=== PATIENT | female | born 1985 | race Caucasian/White ===

== ENCOUNTER 2022-03-30 12:07 | Inpatient (IN) | payer MEDICAID, SELFPAY ==
[2022-03-30 12:08] VITALS: BP 121/77; PULSE 87; RESP 16; TEMP 36.6; O2SAT 97; BMI 26.5
--- NOTE | 2022-03-30 12:31 | EDS_ITS ---
HPI <DWAIN Suero - Last Filed: 03/30/22 15:58> History of Present Illness Chief Complaint: Substance Abuse Narrative Narrative: 37-year-old female presents requesting detox from heroin. She uses IV heroin approximately 2-3 times a day for the last 3 years with last use this morning. A few months ago she tried to detox at home without access. She has never come to the hospital or been admitted for this before. She denies using any other drugs or alcohol. Smokes 1 PPD. She has history of anxiety/depression and was previously on Zoloft and Lamictal but has not taken these for several months. She is not established with a doctor. No SI/HI. PFSH <DWAIN Suero - Last Filed: 03/30/22 15:58> PFSH Medical History Bipolar 1 disorder Home Medications duloxetine 60 mg capsule,delayed release (Cymbalta) 60 mg PO DAILY 03/30/22 [History Last Taken Unknown] lamotrigine 100 mg tablet (Lamictal) 100 mg PO BID 03/30/22 [History Last Taken Unknown] Allergy/AdvReac Type Severity Reaction Status Date / Time ketorolac [From Toradol] Allergy Hives Verified 03/30/22 12:10 latex Allergy Hives Verified 03/30/22 12:10 Surgical History History of cholecystectomy Social History Smoking Status: Current every day smoker tobacco type: cigarettes ROS <DWAIN Suero - Last Filed: 03/30/22 15:58> ROS ED ROS Narrative Constitutional: Negative for fever, chills, malaise. Eyes: Negative for visual change. ENT: Negative for sore throat, ear pain, rhinorrhea. CVS: Negative for palpitations, chest pain, syncope. Respiratory: Negative for shortness of breath, cough, orthopnea. GI: Negative for abdominal pain, nausea, vomiting, diarrhea, constipation, melena, hematochezia. : Negative for dysuria, hematuria or frequency. Neuro: Negative for headache, motor/sensory dysfunction. Skin: Negative for rash, abscess, or wound. Musc: Negative for joint pain, swelling, trauma. Heme: Negative for easy bruising, bleeding, lymphadenopathy. EXAM <DWAIN Suero - Last Filed: 03/30/22 15:58> Physical Exam Narrative Exam Narrative: CONST: Patient sitting in no acute distress. EYES: Normal inspection. NECK: Normal inspection. RESP: No respiratory distress, CTAB. CVS: Regular rate and rhythm, no murmur, no gallop. SKIN: Color normal, no rash, warm, dry, intact. EXTREMITIES: Normal appearance, no pedal edema. NEURO: Oriented x4. PSYCH: Normal affect. Const Vital Signs: 03/30/22 12:08 Temperature 98 F Temperature Source Temporal Pulse Rate 87 Respiratory Rate 16 Blood Pressure 121/77 H Blood Pressure Mean 91 Pulse Ox 97 Oxygen Delivery Method Room Air <Dr. Debra Thompson DO - Last Filed: 03/30/22 14:07> Physical Exam Const Vital Signs: 03/30/22 12:08 Temperature 98 F Temperature Source Temporal Pulse Rate 87 Respiratory Rate 16 Blood Pressure 121/77 H Blood Pressure Mean 91 Pulse Ox 97 Oxygen Delivery Method Room Air MDM <DWAIN Suero - Last Filed: 03/30/22 15:58> MDM MDM Narrative Medical decision making narrative: Patient presents to detox from heroin. Last used this morning. She appears well and nontoxic, vital signs within normal limits. Medical exam unremarkable. Screening labs obtained and are unremarkable. Urine tox pending. Alcohol negative. test negative. She has no symptoms of withdrawal yet and was only treated with a nicotine patch in the ED. Patient is medically cleared for detox and case was discussed with the hospitalist for admission. Lab Data Attestation: I reviewed the patient's lab results. Labs: Laboratory Results - last 24 hr 03/30/22 03/30/22 03/30/22 12:25 12:38 12:38 WBC 11.5 H RBC 4.72 Hgb 14.1 Hct 43.1 MCV 91.3 MCH 29.9 MCHC 32.7 RDW Std Deviation 41.1 RDW Coeff of Karla 12.4 Plt Count 249 MPV 11.1 Immature Gran % (Auto) 0.300 Neut % (Auto) 47.7 Lymph % (Auto) 41.6 H [place] % (Auto) 7.6 Eos % (Auto) 2.3 Baso % (Auto) 0.5 Absolute Neuts (auto) 5.5 Absolute Lymphs (auto) 4.79 H Nucleated RBC % 0 Differential Comment SCANNED Reactive Lymphocytes 1+ Sodium 138 Potassium 3.7 Chloride 107 Carbon Dioxide 27.0 Anion Gap 4 L BUN 14 Creatinine 0.73 Estim Creat Clear Calc 83.45 Est GFR (MDRD) Af Amer 115 Est GFR (MDRD) Non-Af 95 BUN/Creatinine Ratio 19.1 Glucose 115 H Calcium 8.8 Total Bilirubin Direct Bilirubin GGT AST ALT Alkaline Phosphatase Total Protein Albumin Globulin Serum , Qual Urine Opiates Screen NEGATIVE Urine Methadone Screen NEGATIVE Ur Barbiturates Screen NEGATIVE Ur Phencyclidine Scrn NEGATIVE Ur Amphetamines Screen NEGATIVE MDMA (Ecstasy) Screen POSITIVE H U Benzodiazepines Scrn NEGATIVE Urine Cocaine Screen POSITIVE H U Cannabinoids Screen NEGATIVE Ur Drug Screen Comment Ethyl Alcohol 03/30/22 03/30/22 03/30/22 12:38 12:38 12:38 WBC RBC Hgb Hct MCV MCH MCHC RDW Std Deviation RDW Coeff of Karla Plt Count MPV Immature Gran % (Auto) Neut % (Auto) Lymph % (Auto) [place] % (Auto) Eos % (Auto) Baso % (Auto) Absolute Neuts (auto) Absolute Lymphs (auto) Nucleated RBC % Differential Comment Reactive Lymphocytes Sodium Potassium Chloride Carbon Dioxide Anion Gap BUN Creatinine Estim Creat Clear Calc Est GFR (MDRD) Af Amer Est GFR (MDRD) Non-Af BUN/Creatinine Ratio Glucose Calcium Total Bilirubin 0.50 Direct Bilirubin 0.15 GGT AST 23 ALT 31 Alkaline Phosphatase 72 Total Protein 8.2 Albumin 3.5 Globulin 4.7 H Serum , Qual NEGATIVE Urine Opiates Screen Urine Methadone Screen Ur Barbiturates Screen Ur Phencyclidine Scrn Ur Amphetamines Screen MDMA (Ecstasy) Screen U Benzodiazepines Scrn Urine Cocaine Screen U Cannabinoids Screen Ur Drug Screen Comment Ethyl Alcohol < 3.0 03/30/22 12:38 WBC RBC Hgb Hct MCV MCH MCHC RDW Std Deviation RDW Coeff of Karla Plt Count MPV Immature Gran % (Auto) Neut % (Auto) Lymph % (Auto) [place] % (Auto) Eos % (Auto) Baso % (Auto) Absolute Neuts (auto) Absolute Lymphs (auto) Nucleated RBC % Differential Comment Reactive Lymphocytes Sodium Potassium Chloride Carbon Dioxide Anion Gap BUN Creatinine Estim Creat Clear Calc Est GFR (MDRD) Af Amer Est GFR (MDRD) Non-Af BUN/Creatinine Ratio Glucose Calcium Total Bilirubin Direct Bilirubin GGT 21 AST ALT Alkaline Phosphatase Total Protein Albumin Globulin Serum , Qual Urine Opiates Screen Urine Methadone Screen Ur Barbiturates Screen Ur Phencyclidine Scrn Ur Amphetamines Screen MDMA (Ecstasy) Screen U Benzodiazepines Scrn Urine Cocaine Screen U Cannabinoids Screen Ur Drug Screen Comment Ethyl Alcohol <Dr. Debra Thompson, DO - Last Filed: 03/30/22 14:07> [facility] Lab Data Labs: Laboratory Results - last 24 hr 03/30/22 03/30/22 03/30/22 12:25 12:38 12:38 WBC 11.5 H RBC 4.72 Hgb 14.1 Hct 43.1 MCV 91.3 MCH 29.9 MCHC 32.7 RDW Std Deviation 41.1 RDW Coeff of Karla 12.4 Plt Count 249 MPV 11.1 Immature Gran % (Auto) 0.300 Neut % (Auto) 47.7 Lymph % (Auto) 41.6 H [place] % (Auto) 7.6 Eos % (Auto) 2.3 Baso % (Auto) 0.5 Absolute Neuts (auto) 5.5 Absolute Lymphs (auto) 4.79 H Nucleated RBC % 0 Differential Comment SCANNED Reactive Lymphocytes 1+ Sodium 138 Potassium 3.7 Chloride 107 Carbon Dioxide 27.0 Anion Gap 4 L BUN 14 Creatinine 0.73 Estim Creat Clear Calc 83.45 Est GFR (MDRD) Af Amer 115 Est GFR (MDRD) Non-Af 95 BUN/Creatinine Ratio 19.1 Glucose 115 H Calcium 8.8 Total Bilirubin Direct Bilirubin GGT AST ALT Alkaline Phosphatase Total Protein Albumin Globulin Serum , Qual Urine Opiates Screen NEGATIVE Urine Methadone Screen NEGATIVE Ur Barbiturates Screen NEGATIVE Ur Phencyclidine Scrn NEGATIVE Ur Amphetamines Screen NEGATIVE MDMA (Ecstasy) Screen POSITIVE H U Benzodiazepines Scrn NEGATIVE Urine Cocaine Screen POSITIVE H U Cannabinoids Screen NEGATIVE Ur Drug Screen Comment Ethyl Alcohol 03/30/22 03/30/22 03/30/22 12:38 12:38 12:38 WBC RBC Hgb Hct MCV MCH MCHC RDW Std Deviation RDW Coeff of Karla Plt Count MPV Immature Gran % (Auto) Neut % (Auto) Lymph % (Auto) [place] % (Auto) Eos % (Auto) Baso % (Auto) Absolute Neuts (auto) Absolute Lymphs (auto) Nucleated RBC % Differential Comment Reactive Lymphocytes Sodium Potassium Chloride Carbon Dioxide Anion Gap BUN Creatinine Estim Creat Clear Calc Est GFR (MDRD) Af Amer Est GFR (MDRD) Non-Af BUN/Creatinine Ratio Glucose Calcium Total Bilirubin 0.50 Direct Bilirubin 0.15 GGT AST 23 ALT 31 Alkaline Phosphatase 72 Total Protein 8.2 Albumin 3.5 Globulin 4.7 H Serum , Qual NEGATIVE Urine Opiates Screen Urine Methadone Screen Ur Barbiturates Screen Ur Phencyclidine Scrn Ur Amphetamines Screen MDMA (Ecstasy) Screen U Benzodiazepines Scrn Urine Cocaine Screen U Cannabinoids Screen Ur Drug Screen Comment Ethyl Alcohol < 3.0 03/30/22 12:38 WBC RBC Hgb Hct MCV MCH MCHC RDW Std Deviation RDW Coeff of Karla Plt Count MPV Immature Gran % (Auto) Neut % (Auto) Lymph % (Auto) [place] % (Auto) Eos % (Auto) Baso % (Auto) Absolute Neuts (auto) Absolute Lymphs (auto) Nucleated RBC % Differential Comment Reactive Lymphocytes Sodium Potassium Chloride Carbon Dioxide Anion Gap BUN Creatinine Estim Creat Clear Calc Est GFR (MDRD) Af Amer Est GFR (MDRD) Non-Af BUN/Creatinine Ratio Glucose Calcium Total Bilirubin Direct Bilirubin GGT 21 AST ALT Alkaline Phosphatase Total Protein Albumin Globulin Serum , Qual Urine Opiates Screen Urine Methadone Screen Ur Barbiturates Screen Ur Phencyclidine Scrn Ur Amphetamines Screen MDMA (Ecstasy) Screen U Benzodiazepines Scrn Urine Cocaine Screen U Cannabinoids Screen Ur Drug Screen Comment Ethyl Alcohol Treatment and Re-Evaluation Narrative: I have personally performed a face to face assessment of the patient and have reviewed the MARIBETH Note. I performed a substantive portion of the visit including all aspects of the following. My fu findings include: History is patient is a 37-year-old female presenting for heroin dependency and detox. Patient states she has been using regularly. Last use very early this morning. Injects. Denies any other complaints at this time. Does use tobacco regularly. Denies any other drug use or alcohol use. Exam is Normocephalic atraumatic. Moist mucosal membranes. Neck is supple. No JVD. Heart regular rate and rhythm. Lungs clear to auscultation bilaterally. Abdomen soft and nontender. No peripheral edema appreciated. No rash or abscess appreciated. No focal neurologic deficits. Patient calm and behaving appropriately. Medical Decison Making patient evaluated for inpatient opioid detox. Patient agreeable to restrictions and rules. Is given a nicotine patch in the ER. Is medically screened which is unremarkable. Admitted to the hospital service. Other additions or changes: [None] Discharge Plan Dx/Rx/DC Orders Clinical Impression: Heroin addiction, Opiate withdrawal, Nicotine dependence Disposition Disposition: Acute Care Hospital [facility] Discharge Date/Time: 03/30/22 14:26
[2022-03-30 12:49] LABS: Absolute Lymphocyte Count 4.79 X10^3/uL (0.83-4.51); Absolute Neutrophil Count 5.5 X10^3/uL (2.0-7.7); Basophil# 0.06 X10^3/uL; Basophil% 0.5 % (0-1); Eosinophil# 0.26 X10^3/uL; Eosinophils% 2.3 % (0-5); Hematocrit 43.1 % (37-47); Hemoglobin 14.1 g/dL (12.0-15.0); Lymphocyte # 4.79 X10^3/ul (0.83-4.51); Lymphocyte % 41.6 % (19-41); Mean Corp Hgb Conc 32.7 g/dL (32-36); Mean Corpuscular Hgb 29.9 pg (27.0-32.0); Mean Corpuscular Volume 91.3 fL (81-99); Mean Platelet Vol. 11.1 fl (6.2-12.0); Monocyte# 0.88 X10^3/uL; Monocyte% 7.6 % (0-10); NRBC Flagged by Analyzer 0 % (0-5); Neutrophil # 5.49 X10^3/uL (2.7-7.7); Neutrophil % 47.7 % (47-70); POSITIVE MORPHOLOGY YES; Platelet Count 249 K/mm3 (150-450); RBC Distribution Width CV 12.4 % (11.6-14.6); RBC Distribution Width SD 41.1 fl (35.1-43.9); Red Blood Count 4.72 M/mm3 (4.2-5.4); White Blood Count 11.5 K/mm3 (4.4-11.0)
[2022-03-30 12:54] LABS: Differential Indicated SCAN CRITERIA MET
[2022-03-30 12:59] LABS: Internal QC Validated? YES +Cl - CLEAR BKGD; Pregnancy, Serum, hCG Quali. NEGATIVE Negative
[2022-03-30 13:02] LABS: Anion Gap 4 (5-15); BUN 14 mg/dL (7-18); BUN/Creat Ratio 19.1 RATIO (10-20); Calcium,Total 8.8 mg/dL (8.5-10.1); Chloride 107 mmol/L (98-107); Creatinine, Serum 0.73 mg/dL (0.55-1.02); EST Glomerular Filtration Rate 95 mL/min (>60); Est Glom Filt Rate - Afr Amer 115 mL/min (>60); Estimated Creatinine Clearance 83.45 ml/min; Glucose 115 mg/dL (74-106); Potassium 3.7 mmol/L (3.5-5.1); Sodium Level 138 mmol/L (136-145)
[2022-03-30 13:11] LABS: Alcohol, Blood (Medical)-Serum < 3.0 mg/dL
--- NOTE | 2022-03-30 13:32 | HP.PCM.HOS_ITS ---
HPI - General General Date of Admission: 03/30/22 Date of Service: 03/30/22 Chief Complaint: Opioid withdrawal symptoms started today, anxiety attack, restlessness HPI Narrative LAURYN POLLARD, is a 37 F with history of polysubstance use came to ED for acute opioid withdrawal symptoms. Patient last dose of IV heroin was early in the morning today. She uses about 1 g of heroin mixed with fentanyl. She had also used crack cocaine in the past. She has history of using IV heroin at the age of 13-14 years and used for 17 years and then sober for sometimes. She relapsed and started using consistently IV opioids for last 3 years. She also had seizure in recent part as withdrawal symptoms of opioid withdrawal. She also has history of chronic alcohol use started using at the age of 13 with severe but progressed to hard liquor, whiskey. At times she was heavily drunk with 6-7 shots of hard liquor. She has history of smoking cigarettes, 1 pack per day since age of 13. She denies using marijuana, methamphetamine, bath salt or ecstasy. She came to ED to get help. She was never admitted for opioid withdrawal symptoms In the ED, she is very anxious, restless having aches and pain and mild abdominal cramps. She denies hallucination, illusion or delusion. No fever or chills. Denies history of deep seeded infection, osteomyelitis or endocarditis. She was test negative for hep C about a year ago. Denies history of HIV or chronic hep C. Lab work done reviewed and discussed in assessment plan [facility] Medical History Bipolar 1 disorder Home Medications duloxetine 60 mg capsule,delayed release (Cymbalta) 60 mg PO DAILY 03/30/22 [History Last Taken Unknown] lamotrigine 100 mg tablet (Lamictal) 100 mg PO BID 03/30/22 [History Last Taken Unknown] Allergy/AdvReac Type Severity Reaction Status Date / Time ketorolac [From Toradol] Allergy Hives Verified 03/30/22 12:10 latex Allergy Hives Verified 03/30/22 12:10 Surgical History History of cholecystectomy Social History Smoking Status: Current every day smoker tobacco type: cigarettes ROS ROS Narrative Constitutional: Reports fatigue and weakness. No fever. HEENT: Reports systems reviewed and no addt'l complaints, except as documented Respiratory/Chest: Denies chest pain, shortness of breath at rest or with exertion Gastrointestinal: Mild nausea. Denies coffee ground emesis, hematemesis or vomiting. No diarrhea or GI bleed Genitourinary: Denies burning urination or new urinary tract symptoms Musculoskeletal: Mild muscle aches and pain. No joint pain Neurologic: History of withdrawal seizure in the past. No focal weakness, numbness tingling or strokelike symptoms. skin: Scar of needle and healed superficial ulcer in both lower legs Endocrinology: Reports systems reviewed and no addt'l complaints, except as documented Hematologic/Lymphatic: Reports systems reviewed and no addt'l complaints, except as documented Psychiatric: Polysubstance use dependence. Bipolar disorder Rest 14 ROS are negative except as mentioned in HPI Vital Signs Vital Signs Vital Signs: 03/30/22 12:08 Temperature 98 F Temperature Source Temporal Pulse Rate 87 Respiratory Rate 16 Blood Pressure 121/77 H Blood Pressure Mean 91 Pulse Ox 97 Oxygen Delivery Method Room Air Weight Weight: 145 lb Body Mass Index (BMI) 26.5 Physical Exam Narrative Physical exam General: Alert, Oriented x3, Cooperative HEENT: Atraumatic, PERRLA, EOMI, Normocephalic Oral: Oral mucosa dry. No Gingival or Mucosal Lesions/ Ulcerations Neck: Supple, No JVD, Negative Carotid Bruits Lungs: Air entry equal in bilateral lung bases. No crepitation/rhonchi Cardiovascular: Regular rate, Regular Rhythm, Normal S1, Normal S2, No murmurs Abdomen: Liver not enlarged. Spleen not palpable. Bowel Sounds Present, Soft, Non Tender, Non-Distended : No renal angle tenderness. No suprapubic tenderness. Extremities: No edema, Capillary Refill Less than 3 Seconds Skin: Scar daren of. Superficial ulcer and needle tracks in both lower legs Musculoskeletal: No Tenderness to Palpation of Joints or Extremities. ROM full at major joints Neurological: Cranial nerves II-XII grossly intact, DTR 2+/4 Psych/Mental Status: Anxious, exaggerated emotion with laughing and sometimes crying Results Lab / Micro Data Result Diagrams: 03/30/22 12:38 03/30/22 12:38 Labs: Laboratory Results - last 24 hr 03/30/22 12:25: Ur Drug Screen Comment 03/30/22 12:38: WBC 11.5 H, RBC 4.72, Hgb 14.1, Hct 43.1, MCV 91.3, MCH 29.9, MCHC 32.7, RDW Std Deviation 41.1, RDW Coeff of Karla 12.4, Plt Count 249, MPV 11.1, Immature Gran % (Auto) 0.300, Neut % (Auto) 47.7, Lymph % (Auto) 41.6 H, [place] % (Auto) 7.6, Eos % (Auto) 2.3, Baso % (Auto) 0.5, Absolute Neuts (auto) 5.5, Absolute Lymphs (auto) 4.79 H, Nucleated RBC % 0 03/30/22 12:38: Sodium 138, Potassium 3.7, Chloride 107, Carbon Dioxide 27.0, Anion Gap 4 L, BUN 14, Creatinine 0.73, Estim Creat Clear Calc 83.45, Est GFR (MDRD) Af Amer 115, Est GFR (MDRD) Non-Af 95, BUN/Creatinine Ratio 19.1, Glucose 115 H, Calcium 8.8 03/30/22 12:38: Ethyl Alcohol < 3.0 03/30/22 12:38: Serum , Qual NEGATIVE Assessment & Plan Assessment/Plan (1) Opiate withdrawal: PLAN: This is a 37-year-old female came to ED for acute opioid withdrawal syndrome. 1. Acute opioid withdrawal syndrome with history of chronic opioid use disorder, dependence and tolerance: The [facility] for medical stabilization of acute opioid withdrawal symptoms. Patient is started on buprenorphine along with other adjunctive medications as in opioid order set. Monitor CINA and COWS score. Patient history of relapse and recurrence of opioid dependence. 180 degree case maker consult. Labs reviewed shows mild leukocytosis, 11.5 thousand. K3.7. Anion gap 4. Glucose 115. 2. History of polysubstance use dependence including chronic alcohol use, crack cocaine use: Serum alcohol level is less than 3.0. GGT ordered. She states she has quit alcohol drinking. Liver chemistry ordered, pending 3. Bipolar 1 disorder: Patient on Lamictal and duloxetine, continued. Discussed with the pharmacist no serious drug drug interaction with other medications and opioid withdrawal order set. 4. VTE prophylaxis: Low risk. Early ambulation encouraged. No prophylaxis indicated. CODE STATUS: Full code. Laboratory Results 03/30/22 12:25: Urine Opiates Screen Pending, Urine Methadone Screen Pending, Ur Barbiturates Screen Pending, Ur Phencyclidine Scrn Pending, Ur Amphetamines Screen Pending, MDMA (Ecstasy) Screen Pending, U Benzodiazepines Scrn Pending, Urine Cocaine Screen Pending, U Cannabinoids Screen Pending, Ur Drug Screen Comment 03/30/22 12:38: WBC 11.5 H, RBC 4.72, Hgb 14.1, Hct 43.1, MCV 91.3, MCH 29.9, MCHC 32.7, RDW Std Deviation 41.1, RDW Coeff of Karla 12.4, Plt Count 249, MPV 11.1, Immature Gran % (Auto) 0.300, Neut % (Auto) 47.7, Lymph % (Auto) 41.6 H, [place] % (Auto) 7.6, Eos % (Auto) 2.3, Baso % (Auto) 0.5, Absolute Neuts (auto) 5.5, Absolute Lymphs (auto) 4.79 H, Nucleated RBC % 0, Differential Comment SCANNED, Reactive Lymphocytes 1+ 03/30/22 12:38: Sodium 138, Potassium 3.7, Chloride 107, Carbon Dioxide 27.0, Anion Gap 4 L, BUN 14, Creatinine 0.73, Estim Creat Clear Calc 83.45, Est GFR (MDRD) Af Amer 115, Est GFR (MDRD) Non-Af 95, BUN/Creatinine Ratio 19.1, Glucose 115 H, Calcium 8.8 03/30/22 12:38: Ethyl Alcohol < 3.0 03/30/22 12:38: Serum , Qual NEGATIVE 03/30/22 12:38: Total Bilirubin Pending, Direct Bilirubin Pending, AST Pending, ALT Pending, Alkaline Phosphatase Pending, Total Protein Pending, Albumin Pending Charges/Coding Visit Charges Inpatient E&M: 27719 Init Hosp L3
[2022-03-30 13:38] LABS: Differential Comment SCANNED
[2022-03-30 13:39] LABS: Reactive Lymphocyte 1+
[2022-03-30 14:00] VITALS: BP 121/77; PULSE 87; RESP 16; TEMP 36.6; O2SAT 97
[2022-03-30 14:20] LABS: AST(SGOT) 23 U/L (15-37); Alanine Aminotransfer ALT/SGPT 31 U/L (13-56); Albumin, Serum 3.5 g/dL (3.2-5.0); Alkaline Phosphatase 72 U/L (45-117); Bilirubin, Direct 0.15 mg/dL (0.00-0.30); Globulin 4.7 g/dL (2.2-4.2); Protein, Total 8.2 g/dL (6.4-8.2)
[2022-03-30 14:23] LABS: GGTP 21 U/L (5-55)
[2022-03-30 14:28] VITALS: RESP 18; BMI 26.5
[2022-03-30 14:30] LABS: Amphetamine Urine VISTA NEGATIVE (<1000 ng/mL); Barbiturate Urine VISTA NEGATIVE (< 200 ng/mL); Benzodiazepine Urine VISTA NEGATIVE (< 200 ng/mL); Cocaine Urine VISTA POSITIVE (< 300 ng/mL); Ecstacy Urine VISTA POSITIVE (< 500 ng/mL); Methadone Urine VISTA NEGATIVE (< 300 ng/mL); PCP Urine VISTA NEGATIVE (< 25 ng/mL); THC Urine VISTA NEGATIVE (< 50 ng/mL); Vista UDS pH Range 5
[2022-03-30 14:43] VITALS: BP 110/68; PULSE 68; RESP 18; TEMP 37; O2SAT 98
[2022-03-30] MEDS: Gabapentin 300 MG Capsule PO (15:26)
[2022-03-30] MEDS: Methocarbamol 750 MG Tablet 1500 MG PO ×2 (15:26→21:57)
[2022-03-30] MEDS: DULoxetine Hcl 60 MG Capsule PO (15:26)
[2022-03-30] MEDS: Buprenorphine HCl 2 MG TAB.SUBL SL (17:15)
[2022-03-30 21:45] VITALS: BP 119/73; PULSE 72; RESP 16; TEMP 36.4; O2SAT 100
[2022-03-30] MEDS: lamoTRIgine 100 MG Tablet PO (21:57)
[2022-03-31 00:29] VITALS: BP 101/66; PULSE 80; RESP 16; TEMP 36.4; O2SAT 97
[2022-03-31] MEDS: Ondansetron 8 MG Tablet PO (00:34)
[2022-03-31] MEDS: Buprenorphine HCl 2 MG TAB.SUBL SL ×3 (00:49→17:52)
[2022-03-31 04:46] VITALS: BP 102/60; PULSE 78; RESP 16; TEMP 36.4; O2SAT 96
[2022-03-31] MEDS: Methocarbamol 750 MG Tablet 1500 MG PO ×3 (04:51→16:53)
[2022-03-31] MEDS: Dicyclomine 10 MG Capsule 20 MG PO ×3 (04:51→16:53)
[2022-03-31] MEDS: Gabapentin 300 MG Capsule PO ×2 (06:33→16:53)
--- NOTE | 2022-03-31 07:23 | PCM.PN.HOSP ---
Subjective Subjective Patient is a 37-year-old lady with history of polysubstance abuse admitted with acute opioid withdrawal admitted to regular nursing floor for medical stabilization Objective Data Objective Data Vital Signs: Vital Signs Temp Pulse Resp BP Pulse Ox O2 Del Method 97.5 F L 78 16 102/60 96 Room Air 03/31/22 04:46 03/31/22 04:46 03/31/22 04:46 03/31/22 04:46 03/31/22 04:46 03/31/22 04:46 Oxygen Delivery Method Room Air Weight: 65.771 kg Body Mass Index (BMI) 26.5 Intake & Output: Intake and Output for Last 24 Hours 03/29/22 03/30/22 03/31/22 23:59 23:59 23:59 Intake Total 1650 / 1650 600 / 600 Balance 1650 / 1650 600 / 600 Lab / Micro Data Result Diagrams: 03/30/22 12:38 03/30/22 12:38 Labs: Laboratory Results - last 24 hr 03/30/22 12:25: Urine Opiates Screen NEGATIVE, Urine Methadone Screen NEGATIVE, Ur Barbiturates Screen NEGATIVE, Ur Phencyclidine Scrn NEGATIVE, Ur Amphetamines Screen NEGATIVE, MDMA (Ecstasy) Screen POSITIVE H, U Benzodiazepines Scrn NEGATIVE, Urine Cocaine Screen POSITIVE H, U Cannabinoids Screen NEGATIVE, Ur Drug Screen Comment 03/30/22 12:38: WBC 11.5 H, RBC 4.72, Hgb 14.1, Hct 43.1, MCV 91.3, MCH 29.9, MCHC 32.7, RDW Std Deviation 41.1, RDW Coeff of Karla 12.4, Plt Count 249, MPV 11.1, Immature Gran % (Auto) 0.300, Neut % (Auto) 47.7, Lymph % (Auto) 41.6 H, [place] % (Auto) 7.6, Eos % (Auto) 2.3, Baso % (Auto) 0.5, Absolute Neuts (auto) 5.5, Absolute Lymphs (auto) 4.79 H, Nucleated RBC % 0, Differential Comment SCANNED, Reactive Lymphocytes 1+ 03/30/22 12:38: Sodium 138, Potassium 3.7, Chloride 107, Carbon Dioxide 27.0, Anion Gap 4 L, BUN 14, Creatinine 0.73, Estim Creat Clear Calc 83.45, Est GFR (MDRD) Af Amer 115, Est GFR (MDRD) Non-Af 95, BUN/Creatinine Ratio 19.1, Glucose 115 H, Calcium 8.8 03/30/22 12:38: Ethyl Alcohol < 3.0 03/30/22 12:38: Serum , Qual NEGATIVE 03/30/22 12:38: Total Bilirubin 0.50, Direct Bilirubin 0.15, AST 23, ALT 31, Alkaline Phosphatase 72, Total Protein 8.2, Albumin 3.5, Globulin 4.7 H 03/30/22 12:38: GGT 21 Physical Exam Narrative GENERAL: cooperative HEENT: Atraumatic; EYES; Anicteric, Normal Conjunctiva NECK; supple, normal thyroid, RESPIRATORY: Diminished to auscultation CARDIOVASCULAR: Regular S1 S2, GI: soft, normoactive bowel sounds, : No Renal angle tenderness; EXTREMITIES: No edema, no clubbing, MUSCULOSKELETAL: no muscle wasting NEURO: Awake; no lateralizing signs. SKIN: No Rash PSYCH; Flat affect Assessment & Plan Assessment/Plan (1) Opiate withdrawal: PLAN: 37-year-old lady admitted with acute opioid withdrawal 1. Acute opioid withdrawal ? Patient has been admitted to regular nursing floor currently being managed buprenorphine taper along with other adjunctive medications for medical stabilization 2. Polysubstance abuse including opioids, crack cocaine, and alcohol ? Counseled on cessation 3. Bipolar disorder ? Patient is on Lamictal and duloxetine did continue 4. DVT prophylaxis ? Low risk did encourage early ambulation Charges/Coding Visit Charges Inpatient E&M: 19337 Subs Hosp L2
[2022-03-31] MEDS: DULoxetine Hcl 60 MG Capsule PO (10:48)
[2022-03-31] MEDS: lamoTRIgine 100 MG Tablet PO ×2 (10:48→21:31)
[2022-03-31 10:50] VITALS: BP 102/58; PULSE 55; RESP 18; TEMP 37.1; O2SAT 96
[2022-03-31] MEDS: hydrOXYzine PAM 25 MG Capsule 50 MG PO ×2 (11:00→21:31)
[2022-03-31] MEDS: Acetaminophen 500 MG Tablet PO ×2 (11:01→21:31)
[2022-03-31 17:00] VITALS: BP 116/71; PULSE 58; RESP 16; TEMP 36.7; O2SAT 98
[2022-03-31 21:30] VITALS: BP 104/68; PULSE 60; RESP 16; TEMP 36.6; O2SAT 100
[2022-03-31] MEDS: cloNIDine HCl 0.1 MG Tablet PO (21:31)
[2022-03-31] MEDS: traZODone 100 MG Tablet PO (21:31)
[2022-04-01] MEDS: Buprenorphine HCl 2 MG TAB.SUBL SL ×3 (01:04→17:19)
[2022-04-01 03:21] VITALS: BP 109/55; PULSE 61; RESP 16; TEMP 36.6; O2SAT 94
--- NOTE | 2022-04-01 07:16 | PCM.PN.HOSP ---
Subjective Subjective Patient seen still complains of significant symptoms. She described her condition as crappy Objective Data Objective Data Vital Signs: Vital Signs Temp Pulse Resp BP Pulse Ox O2 Del Method 97.8 F 61 16 109/55 L 94 Room Air 04/01/22 03:21 04/01/22 03:21 04/01/22 03:21 04/01/22 03:21 04/01/22 03:21 04/01/22 03:21 Oxygen Delivery Method Room Air Weight: 65.771 kg Body Mass Index (BMI) 26.5 Intake & Output: Intake and Output for Last 24 Hours 03/30/22 03/31/22 04/01/22 23:59 23:59 23:59 Intake Total 1650 / 1650 1645 / 1645 Balance 1650 / 1650 1645 / 1645 Lab / Micro Data Result Diagrams: 03/30/22 12:38 03/30/22 12:38 Physical Exam Narrative GENERAL: cooperative HEENT: Atraumatic; EYES; Anicteric, Normal Conjunctiva NECK; supple, normal thyroid, RESPIRATORY: Diminished to auscultation CARDIOVASCULAR: Regular S1 S2, GI: soft, normoactive bowel sounds, : No Renal angle tenderness; EXTREMITIES: No edema, no clubbing, MUSCULOSKELETAL: no muscle wasting NEURO: Awake; no lateralizing signs. SKIN: No Rash PSYCH; Flat affect Assessment & Plan Assessment/Plan (1) Opiate withdrawal: PLAN: 37-year-old lady admitted with acute opioid withdrawal 1. Acute opioid withdrawal ? Patient has been admitted to regular nursing floor currently being managed buprenorphine taper along with other adjunctive medications for medical stabilization ? 04/01/2022 patient still has significant symptoms we will continue with current management regimen. Consult has also been placed to [facility] counseling services 2. Polysubstance abuse including opioids, crack cocaine, and alcohol ? Counseled on cessation 3. Bipolar disorder ? Patient is on Lamictal and duloxetine did continue 4. DVT prophylaxis ? Low risk did encourage early ambulation Charges/Coding Visit Charges Inpatient E&M: 36071 Subs Hosp L2
[2022-04-01] MEDS: DULoxetine Hcl 60 MG Capsule PO (08:58)
[2022-04-01] MEDS: lamoTRIgine 100 MG Tablet PO ×2 (08:58→21:48)
[2022-04-01 09:00] VITALS: BP 99/53; PULSE 64; RESP 18; TEMP 36.8; O2SAT 99
[2022-04-01] MEDS: Gabapentin 300 MG Capsule PO ×2 (09:02→21:48)
[2022-04-01] MEDS: Acetaminophen 500 MG Tablet PO ×3 (09:02→21:48)
[2022-04-01] MEDS: Methocarbamol 750 MG Tablet 1500 MG PO ×2 (09:02→21:48)
[2022-04-01 15:00] VITALS: BP 118/66; PULSE 88; RESP 18; TEMP 36.6; O2SAT 95
[2022-04-01] MEDS: Ondansetron 8 MG Tablet PO (15:12)
[2022-04-01] MEDS: cloNIDine HCl 0.1 MG Tablet PO (15:12)
[2022-04-01] MEDS: hydrOXYzine PAM 25 MG Capsule 50 MG PO (15:12)
[2022-04-01] MEDS: Dicyclomine 10 MG Capsule 20 MG PO (17:19)
[2022-04-01 21:00] VITALS: BP 108/64; PULSE 71; RESP 14; TEMP 37.2; O2SAT 100
[2022-04-01] MEDS: traZODone 100 MG Tablet PO (21:48)
[2022-04-02 00:51] VITALS: BP 111/61; PULSE 65; RESP 14; TEMP 36.8; O2SAT 96
[2022-04-02] MEDS: hydrOXYzine PAM 25 MG Capsule 50 MG PO ×2 (00:58→09:50)
[2022-04-02 05:27] VITALS: BP 95/59; PULSE 61; RESP 14; TEMP 36.8; O2SAT 95
[2022-04-02] MEDS: Buprenorphine HCl 2 MG TAB.SUBL SL (05:39)
[2022-04-02] MEDS: Methocarbamol 750 MG Tablet 1500 MG PO ×2 (05:46→13:16)
[2022-04-02] MEDS: Acetaminophen 500 MG Tablet PO ×2 (05:46→13:16)
[2022-04-02] MEDS: Gabapentin 300 MG Capsule PO ×2 (05:46→14:54)
[2022-04-02] MEDS: Dicyclomine 10 MG Capsule 20 MG PO (05:47)
[2022-04-02] MEDS: Ondansetron 8 MG Tablet PO (05:47)
--- NOTE | 2022-04-02 07:28 | PCM.PN.HOSP ---
Subjective Subjective Patient seen still complains of significant symptoms. Plan is for patient to be assessed for possible inpatient treatment and discharge Objective Data Objective Data Vital Signs: Vital Signs Temp Pulse Resp BP Pulse Ox O2 Del Method 98.2 F 61 14 95/59 L 95 Room Air 04/02/22 05:27 04/02/22 05:27 04/02/22 05:27 04/02/22 05:27 04/02/22 05:27 04/02/22 05:27 Oxygen Delivery Method Room Air Weight: 65.771 kg Body Mass Index (BMI) 26.5 Intake & Output: Intake and Output for Last 24 Hours 03/31/22 04/01/22 04/02/22 23:59 23:59 23:59 Intake Total 1645 / 1645 600 / 600 Balance 1645 / 1645 600 / 600 Lab / Micro Data Result Diagrams: 03/30/22 12:38 03/30/22 12:38 Physical Exam Narrative GENERAL: cooperative HEENT: Atraumatic; EYES; Anicteric, Normal Conjunctiva NECK; supple, normal thyroid, RESPIRATORY: Diminished to auscultation CARDIOVASCULAR: Regular S1 S2, GI: soft, normoactive bowel sounds, : No Renal angle tenderness; EXTREMITIES: No edema, no clubbing, MUSCULOSKELETAL: no muscle wasting NEURO: Awake; no lateralizing signs. SKIN: No Rash PSYCH; Flat affect Assessment & Plan Assessment/Plan (1) Opiate withdrawal: PLAN: 37-year-old lady admitted with acute opioid withdrawal 1. Acute opioid withdrawal ? Patient has been admitted to regular nursing floor currently being managed buprenorphine taper along with other adjunctive medications for medical stabilization ? 04/01/2022 patient still has significant symptoms we will continue with current management regimen. Consult has also been placed to [facility] counseling services ? 04/02/2022 Patient seen still complains of significant symptoms. Plan is for patient to be assessed for possible inpatient treatment and discharge 2. Polysubstance abuse including opioids, crack cocaine, and alcohol ? Counseled on cessation 3. Bipolar disorder ? Patient is on Lamictal and duloxetine did continue 4. DVT prophylaxis ? Low risk did encourage early ambulation Charges/Coding Visit Charges Inpatient E&M: 19245 Subs Hosp L2
[2022-04-02 09:40] VITALS: BP 99/59; PULSE 63; RESP 17; TEMP 37.3; O2SAT 96
[2022-04-02] MEDS: lamoTRIgine 100 MG Tablet PO (09:50)
[2022-04-02] MEDS: DULoxetine Hcl 60 MG Capsule PO (09:50)
--- NOTE | 2022-04-02 11:49 | ADDICTION ---
Addendum entered by Annabelle Baltazar 04/02/22 13:37: Pt has been accepted into [facility]. they will transport her tomorrow around 11. Original Note: This securities underwriter met with PT to conduct ASAM, MSE, AUDIT, DUDIT assessments and to plan for d/c. PT A+Ox4 and participated actively. All assessments completed and placed in PT's chart. PT plans to f/u with residential treatment services, she has a screening call from [facility] this afternoon. If approved, they will provide transport in the morning. If pt is not approved, pt would like to go home. Her family will provide transportation post d/c.
[2022-04-02 14:54] VITALS: BP 124/77; PULSE 68; RESP 17; TEMP 36.8; O2SAT 97
[2022-04-02] MEDS: cloNIDine HCl 0.1 MG Tablet PO (14:57)
--- NOTE | 2022-04-02 15:49 | PCM.DC.SUM ---
Providers Date of Admission: 03/30/22 Date of Discharge: 04/02/22 Primary Care Physician: Dia Primary Care Phys Reason For Visit: ACUTE HEROIN WITHDRAWAL Diagnosis Discharge Diagnosis (1) Opiate withdrawal: Status: Acute Code(s): F11.93 - Opioid use, unspecified with withdrawal Plan: 37-year-old lady admitted with acute opioid withdrawal 1. Acute opioid withdrawal ? Patient has been admitted to regular nursing floor currently being managed buprenorphine taper along with other adjunctive medications for medical stabilization ? 04/01/2022 patient still has significant symptoms we will continue with current management regimen. Consult has also been placed to [facility] services ? 04/02/2022 Patient seen still complains of significant symptoms. Plan is for patient to be assessed for possible inpatient treatment and discharge ? Patient left AGAINST MEDICAL ADVICE attempt made for patient to rescind her decision proved futile 2. Polysubstance abuse including opioids, crack cocaine, and alcohol ? Counseled on cessation 3. Bipolar disorder ? Patient is on Lamictal and duloxetine did continue 4. DVT prophylaxis ? Low risk did encourage early ambulation Medications at Discharge Home Medications duloxetine 60 mg capsule,delayed release (Cymbalta) 60 mg PO DAILY 03/30/22 lamotrigine 100 mg tablet (Lamictal) 100 mg PO BID 03/30/22 Weight / BMI Weight Weight: 65.771 kg Body Mass Index (BMI) 26.5 ABG / Lab / Microbiology Data Result Diagrams: 03/30/22 12:38 03/30/22 12:38 Meaningful Use Info Meaningful Use Diagnoses (Choose all that apply): None applicable Discharge Plan Admission Admit Date/Time: 03/30/22 13:31 Attending Provider: Mani Ma Primary Care Provider: Care Physician,Dia Primary Consulting Providers: Rachid Davidson Discharge Orders/Prescriptions Prescriptions: No Action lamotrigine [Lamictal] 100 mg Tablet 100 mg PO BID duloxetine [Cymbalta] 60 mg Capsule,Delayed Release(Dr/Ec) 60 mg PO DAILY Referrals / Follow Up: Care Physician,No Primary [Primary Care Provider] - NOT,DEFINED [NON-STAFF] - Disposition Disposition (needs filled in before D/C Order can be placed): Against Medical Advice Charges/Coding Visit Charges Inpatient E&M: 06714 Disch Hosp
--- NOTE | 2022-04-02 15:51 | NURSING ---
pt called RN into room at 1530 states wants to leave. pt states dad is sick and only has 6mo to live and she wants to be there for him. informed pt that will need to sign out AMA pt states ok. pt asks to call her dad Leif to come get her. a call placed to Leif at 1535 to come get pt. Maliha states just got home from work and it will be a while before he will be able to come get her. informed Leif of where to get her at the main entrance. informed pt that dad will come and will be a bit since just got home from work. pt ok.. pt asks if can wait downstairs at main entrance. had pt sign AMA paper and shown where to go to the main entrance.
== END 2022-04-02 15:43 | disposition left against medical advice (07) | DRG 770 ==
LOC: ED 13:50 → MS3 13:55
PROVIDERS: Physician Assistant; Admitting Provider Internal Medicine; Emergency Provider Emergency Medicine; Visit Provider Internal Medicine
DX: F11.23 Opioid dependence with withdrawal (principal); L97.911 Non-pressure chronic ulcer of unspecified part of right lower leg limited to breakdown of skin; F31.9 Bipolar disorder, unspecified; L97.921 Non-pressure chronic ulcer of unspecified part of left lower leg limited to breakdown of skin; F17.210 Nicotine dependence, cigarettes, uncomplicated; F41.9 Anxiety disorder, unspecified
CPT/HCPCS: 36415; 80048; 80076; 80307; 82077; 82977; 84703; 85025; 99283; 99406

== ENCOUNTER 2022-12-05 04:17 | Observation (INO) | payer MEDICAID, SELFPAY ==
[2022-12-05] VITALS (8 sets, daily range): BP systolic 107–141; BP diastolic 60–69; PULSE 73–97; RESP 18–20; TEMP 36.5–37.1; O2SAT 94–98; BMI 27.8; BMI 27.4
--- NOTE | 2022-12-05 04:39 | EX.ED.SAOD ---
HPI History of Present Illness Chief Complaint: Substance Abuse Narrative Narrative: 37-year-old female presenting for detox. Patient states he does do fentanyl and crack cocaine. Patient states last detox was here at [facility]. She states he was clean for a while after leaving the hospital, but after the of her mother she started doing drugs again. She has been using since. She has a history of bipolar disorder and takes Lamictal, Zoloft. [facility] Medical History Bipolar 1 disorder Substance abuse Home Medications lamotrigine 100 mg tablet (Lamictal) 100 mg PO BID 03/30/22 [History Last Taken Unknown] sertraline 50 mg tablet (Zoloft) 50 mg PO BID 12/05/22 [History Last Taken Unknown] trazodone 100 mg tablet 100 mg PO QHS 12/05/22 [History Last Taken Unknown] Allergy/AdvReac Type Severity Reaction Status Date / Time ketorolac [From Toradol] Allergy Hives Verified 12/05/22 04:25 latex Allergy Hives Verified 12/05/22 04:25 morphine Allergy Rash Verified 12/05/22 04:25 Surgical History History of cholecystectomy Social History Smoking Status: Current every day smoker tobacco type: cigarettes ROS ROS ED Constitutional Constitutional ED: Denies chills, fever(s) or sweats Eyes Eyes: Denies blurry vision or change in vision ENT ENT ED: Denies ear pain or sore throat Cardiovascular Cardiovascular: Denies chest pain, palpitations or racing heartbeat Respiratory/Chest Respiratory/Chest: Denies cough, dyspnea or sputum Gastrointestinal Gastrointestinal: Denies abdominal pain, constipation, diarrhea, nausea or vomiting Genitourinary Genitourinary ED: Denies dysuria, hematuria or urinary frequency Musculoskeletal Musculoskeletal: Denies arthralgias, myalgias or neck pain Integumentary Denies abscess, Abrasions or rash Neurologic Neurologic: Denies headache(s), paresthesias or weakness Psychiatric Psychiatric: Denies anxiety, depression, suicidal ideation or suicidal thoughts Endocrine Endocrinology: Denies polydipsia or polyuria EXAM Physical Exam Const Vital Signs: 12/05/22 04:18 12/05/22 05:42 12/05/22 05:43 Temperature 97.7 F L 97.9 F Temperature Source Temporal Temporal Pulse Rate 97 82 82 Respiratory Rate 18 18 Blood Pressure 107/69 141/60 H Blood Pressure Mean 81 87 Pulse Ox 94 Oxygen Delivery Method Room Air Room Air General Appearance ED: Negative for pallor HEENT Reports normocephalic and moist mucous membranes Eyes PERRL and EOMs intact bilaterally Neck no lymphadenopathy and supple Resp normal respiratory effort Cardio regular rate and regular rhythm Narrative: Deferred Extremity normal to inspection Neuro oriented x3 and CN's II-XII intact bilaterally Sensorium / Orientation: alert Motor Exam: strength 5/5 throughout Psych mental status grossly normal Attitude: No agitated Skin no rashes or lesions noted and no wounds General Skin Exam: Negative for jaundice or pallor MDM MDM MDM Narrative Medical decision making narrative: 37-year-old female presenting for fentanyl detox. She also admits to using crack cocaine. Patient denies alcohol abuse. Vital signs are stable and she is afebrile. CBC shows slight leukocytosis 16.8. There is no left shift. Hemoglobin macular stable. Platelets normal. Urine test is negative. Drug screen positive for cocaine only. EtOH negative. Renal function electrolytes unremarkable. We will discuss with the hospitalist for admission. Impression: 1. Cocaine abuse 2. Fentanyl abuse 3. Presentation for fentanyl detox. Lab Data Labs: Laboratory Results - last 24 hr 12/05/22 12/05/22 12/05/22 04:30 04:30 05:27 WBC 16.8 H RBC 4.22 Hgb 13.3 Hct 39.2 MCV 92.9 MCH 31.5 MCHC 33.9 RDW Std Deviation 41.1 RDW Coeff of Karla 11.9 Plt Count 273 MPV 11.0 Immature Gran % (Auto) 0.500 Neut % (Auto) 59.5 Lymph % (Auto) 30.3 [place] % (Auto) 7.0 Eos % (Auto) 2.2 Baso % (Auto) 0.5 Absolute Neuts (auto) 10.0 H Absolute Lymphs (auto) 5.08 H Nucleated RBC % 0 Differential Comment SCANNED Atypical Lymphocytes 1+ Sodium Potassium Chloride Carbon Dioxide Anion Gap BUN Creatinine Estim Creat Clear Calc Est GFR (MDRD) Af Amer Est GFR (MDRD) Non-Af BUN/Creatinine Ratio Glucose Calcium Serum , Qual Urine Test Negative Urine Opiates Screen NEGATIVE Urine Methadone Screen NEGATIVE Ur Barbiturates Screen NEGATIVE Ur Phencyclidine Scrn NEGATIVE Ur Amphetamines Screen NEGATIVE MDMA (Ecstasy) Screen NEGATIVE U Benzodiazepines Scrn NEGATIVE Urine Cocaine Screen POSITIVE H U Cannabinoids Screen NEGATIVE Ur Drug Screen Comment Ethyl Alcohol 12/05/22 12/05/22 12/05/22 05:27 05:27 05:27 WBC RBC Hgb Hct MCV MCH MCHC RDW Std Deviation RDW Coeff of Karla Plt Count MPV Immature Gran % (Auto) Neut % (Auto) Lymph % (Auto) [place] % (Auto) Eos % (Auto) Baso % (Auto) Absolute Neuts (auto) Absolute Lymphs (auto) Nucleated RBC % Differential Comment Atypical Lymphocytes Sodium 137 Potassium 3.6 Chloride 108 H Carbon Dioxide 27.0 Anion Gap 2 L BUN 14 Creatinine 0.59 Estim Creat Clear Calc 103.25 Est GFR (MDRD) Af Amer 146 Est GFR (MDRD) Non-Af 121 BUN/Creatinine Ratio 23.6 H Glucose 94 Calcium 9.1 Serum , Qual Cancelled Urine Test Urine Opiates Screen Urine Methadone Screen Ur Barbiturates Screen Ur Phencyclidine Scrn Ur Amphetamines Screen MDMA (Ecstasy) Screen U Benzodiazepines Scrn Urine Cocaine Screen U Cannabinoids Screen Ur Drug Screen Comment Ethyl Alcohol < 3.0 Discharge Plan Triage Chief Complaint: Substance Abuse ED Provider: Kurtis Quevedo Dx/Rx/DC Orders Prescriptions: No Action lamotrigine [Lamictal] 100 mg Tablet 100 mg PO BID trazodone 100 mg Tablet 100 mg PO QHS sertraline [Zoloft] 50 mg Tablet 50 mg PO BID Primary Care Provider: Care Physician,No Primary Referrals: Care Physician,No Primary [Primary Care Provider] -
[2022-12-05 04:54] LABS: Amphetamine Urine VISTA NEGATIVE (<1000 ng/mL); Barbiturate Urine VISTA NEGATIVE (< 200 ng/mL); Benzodiazepine Urine VISTA NEGATIVE (< 200 ng/mL); Cocaine Urine VISTA POSITIVE (< 300 ng/mL); Ecstacy Urine VISTA NEGATIVE (< 500 ng/mL); Methadone Urine VISTA NEGATIVE (< 300 ng/mL); PCP Urine VISTA NEGATIVE (< 25 ng/mL); THC Urine VISTA NEGATIVE (< 50 ng/mL); Vista UDS pH Range 5
[2022-12-05 05:22] LABS: Internal QC Validated? YES +Cl - CLEAR BKGD; Pregnancy, Urine Negative Negative
[2022-12-05 05:35] LABS: Absolute Lymphocyte Count 5.08 X10^3/uL (0.83-4.51); Basophil# 0.09 X10^3/uL; Basophil% 0.5 % (0-1); Eosinophil# 0.37 X10^3/uL; Eosinophils% 2.2 % (0-5); Hematocrit 39.2 % (37-47); Hemoglobin 13.3 g/dL (12.0-15.0); Lymphocyte # 5.08 X10^3/ul (0.83-4.51); Lymphocyte % 30.3 % (19-41); Mean Corp Hgb Conc 33.9 g/dL (32-36); Mean Corpuscular Hgb 31.5 pg (27.0-32.0); Mean Corpuscular Volume 92.9 fL (81-99); Monocyte# 1.17 X10^3/uL; NRBC Flagged by Analyzer 0 % (0-5); Neutrophil # 9.96 X10^3/uL (2.7-7.7); Neutrophil % 59.5 % (47-70); POSITIVE DIFFERENTIAL YES; POSITIVE MORPHOLOGY YES; Platelet Count 273 K/mm3 (150-450); RBC Distribution Width CV 11.9 % (11.6-14.6); RBC Distribution Width SD 41.1 fl (35.1-43.9); Red Blood Count 4.22 M/mm3 (4.2-5.4); White Blood Count 16.8 K/mm3 (4.4-11.0)
[2022-12-05 05:40] LABS: Differential Indicated SCAN CRITERIA MET
[2022-12-05 05:48] LABS: Anion Gap 2 (5-15); BUN 14 mg/dL (7-18); BUN/Creat Ratio 23.6 RATIO (10-20); Calcium,Total 9.1 mg/dL (8.5-10.1); Chloride 108 mmol/L (98-107); Creatinine, Serum 0.59 mg/dL (0.55-1.02); EST Glomerular Filtration Rate 121 mL/min (>60); Est Glom Filt Rate - Afr Amer 146 mL/min (>60); Estimated Creatinine Clearance 103.25 ml/min; Glucose 94 mg/dL (74-106); Potassium 3.6 mmol/L (3.5-5.1); Sodium Level 137 mmol/L (136-145)
[2022-12-05 05:53] LABS: Alcohol, Blood (Medical)-Serum < 3.0 mg/dL
[2022-12-05 05:59] LABS: Atypical Lymphocyte 1+ %; Differential Comment SCANNED
--- NOTE | 2022-12-05 06:16 | HP.PCM.HOS_ITS ---
HPI - General General Date of Admission: 12/05/22 Date of Service: 12/05/22 Chief Complaint: Desire for detoxification HPI Narrative LAURYN POLLARD, is a 37 F with a significant history of tobacco abuse; previous alcoholism; and polysubstance abuse who presents emergency department for help with opioid detoxification. Opioid abuse: Patient reports using 1 g to 2 g of heroin per day. She shoots it. Last use was a day before presentation. She reports using heroin for about 5 years. Crack cocaine: Patient reports using about a gram of crack cocaine daily. She smokes it. Last time she used was a day before presentation. She reported that she has been using for 6 months. Alcoholism: Reportedly she used to be alcoholic but quit many years ago. Narcotic pills: She reported that when she was about age 16 she started using Percocet but has since stopped using. Patient reports withdrawal symptoms of feeling hot and cold, nausea, and body aches. Patient was admitted to our hospital in March 2022 for detoxification. She si gned out AMA at that time. She reports that she relapsed when her mother in May 2022. [facility] Medical History Bipolar 1 disorder Substance abuse Home Medications lamotrigine 100 mg tablet (Lamictal) 100 mg PO BID 03/30/22 [History Last Taken Unknown] sertraline 50 mg tablet (Zoloft) 50 mg PO BID 12/05/22 [History Last Taken Unknown] trazodone 100 mg tablet 100 mg PO QHS 12/05/22 [History Last Taken Unknown] Allergy/AdvReac Type Severity Reaction Status Date / Time ketorolac [From Toradol] Allergy Hives Verified 12/05/22 04:25 latex Allergy Hives Verified 12/05/22 04:25 morphine Allergy Rash Verified 12/05/22 04:25 Family History Other Liver disease Surgical History History of cholecystectomy Social History Smoking Status: Current every day smoker tobacco type: cigarettes ROS ROS Narrative Pertinent positives and pertinent negatives as noted in HPI. All other systems were reviewed and are negative Vital Signs Vital Signs Vital Signs: 12/05/22 04:18 12/05/22 05:42 12/05/22 05:43 Temperature 97.7 F L 97.9 F Temperature Source Temporal Temporal Pulse Rate 97 82 82 Respiratory Rate 18 18 Blood Pressure 107/69 141/60 H Blood Pressure Mean 81 87 Pulse Ox 94 Oxygen Delivery Method Room Air Room Air Weight Weight: 69.2 kg Body Mass Index (BMI) 27.8 Physical Exam Narrative Physical exam: General: Patient lying in hospital bed and shaking. Head: Normocephalic, atraumatic, no tenderness Eyes: Vision is grossly intact. EOMI ENT: Loss of multiple teeth with poor dentition. Moist mucous membranes, no rhinorrhea Neck: Nontender, No thyromegaly. CVS: Regular rate and rhythm. S1-S2 present. No murmur, gallop or rub. Respiratory : clear to auscultation bilaterally, chest wall nontender Abdomen: Soft, nontender, nondistended, normal bowel sounds, no masses : Deferred Back: Nontender, no CVA tenderness, no midline spinal tenderness, deformities, step-offs Extremities: Nontender full range of motion, no trauma Skin: Normal color, no trauma, abrasions Neuro: Alert, oriented, cranial nerves II through XII grossly intact. Psychiatry: Appears restless and scratching body. Results Lab / Micro Data Attestation: I reviewed the patient's lab results. Result Diagrams: 12/05/22 05:27 12/05/22 05:27 Labs: Laboratory Results - last 24 hr 12/05/22 04:30: Urine Opiates Screen NEGATIVE, Urine Methadone Screen NEGATIVE, Ur Barbiturates Screen NEGATIVE, Ur Phencyclidine Scrn NEGATIVE, Ur Amphetamines Screen NEGATIVE, MDMA (Ecstasy) Screen NEGATIVE, U Benzodiazepines Scrn NEGATIVE, Urine Cocaine Screen POSITIVE H, U Cannabinoids Screen NEGATIVE, Ur Drug Screen Comment 12/05/22 04:30: Urine Test Negative 12/05/22 05:27: WBC 16.8 H, RBC 4.22, Hgb 13.3, Hct 39.2, MCV 92.9, MCH 31.5, MCHC 33.9, RDW Std Deviation 41.1, RDW Coeff of Karla 11.9, Plt Count 273, MPV 11.0, Immature Gran % (Auto) 0.500, Neut % (Auto) 59.5, Lymph % (Auto) 30.3, [place] % (Auto) 7.0, Eos % (Auto) 2.2, Baso % (Auto) 0.5, Absolute Neuts (auto) 10.0 H, Absolute Lymphs (auto) 5.08 H, Nucleated RBC % 0, Differential Comment SCANNED, Atypical Lymphocytes 1+ 12/05/22 05:27: Sodium 137, Potassium 3.6, Chloride 108 H, Carbon Dioxide 27.0, Anion Gap 2 L, BUN 14, Creatinine 0.59, Estim Creat Clear Calc 103.25, Est GFR (MDRD) Af Amer 146, Est GFR (MDRD) Non-Af 121, BUN/Creatinine Ratio 23.6 H, Glucose 94, Calcium 9.1 12/05/22 05:27: Ethyl Alcohol < 3.0 12/05/22 05:27: Serum , Qual Cancelled Assessment & Plan Assessment/Plan (1) Heroin addiction: (2) Nicotine dependence: (3) Desire for detoxification: PLAN: Plan Opioid dependence and withdrawal Review of old records show that patient was admitted on 03/30/2022 and discharged on 04/02/2022 for opioid detoxification. At that time patient signed out AMA. Patient be started on Subutex and other adjunctive medications: Gabapentin as needed; dicyclomine as needed; Vistaril as needed; methocarbamol as needed; clonidine as needed; Imodium as needed; and Zofran as needed. Monitor COWS and CINA score Leukocytosis White blood count of 16,800 on presentation. Likely reactive. Trend. Tobacco abuse Counseled Nicotine patch and gum prescribed. Bipolar disorder Persistent. Lamictal, sertraline and trazodone continued. DVT prophylaxis Low risk Encourage to ambulate Charges/Coding Visit Charges Inpatient E&M: 28252 Init Hosp L2
[2022-12-05] MEDS: Sertraline 50 MG Tablet PO ×2 (09:34→19:46)
[2022-12-05] MEDS: lamoTRIgine 100 MG Tablet PO ×2 (09:34→19:46)
[2022-12-05] MEDS: Methocarbamol 750 MG Tablet 1500 MG PO (13:57)
[2022-12-05] MEDS: Dicyclomine 10 MG Capsule 20 MG PO (19:46)
[2022-12-05] MEDS: traZODone 100 MG Tablet PO (19:46)
[2022-12-05] MEDS: hydrOXYzine PAM 25 MG Capsule 50 MG PO (19:46)
[2022-12-06] VITALS (7 sets, daily range): BP systolic 93–114; BP diastolic 64–78; PULSE 63–90; RESP 18–20; TEMP 36.7–37.6; O2SAT 94–100
[2022-12-06] MEDS: hydrOXYzine PAM 25 MG Capsule 50 MG PO ×2 (05:26→21:22)
[2022-12-06] MEDS: Dicyclomine 10 MG Capsule 20 MG PO ×3 (05:26→21:21)
[2022-12-06] MEDS: lamoTRIgine 100 MG Tablet PO ×2 (09:04→21:15)
[2022-12-06] MEDS: Sertraline 50 MG Tablet PO ×2 (09:04→21:15)
[2022-12-06] MEDS: Methocarbamol 750 MG Tablet 1500 MG PO ×3 (09:13→21:22)
[2022-12-06] MEDS: Gabapentin 300 MG Capsule PO (09:14)
[2022-12-06] MEDS: Buprenorphine HCl 2 MG TAB.SUBL SL ×2 (09:18→17:20)
--- NOTE | 2022-12-06 09:43 | PCM.PN.HOSP ---
Reason for Visit Reason for Visit: Diagnoses Opioid dependence, uncomplicated (12/05/22) Nicotine dependence, unspecified, uncomplicated (12/05/22) Subjective Subjective Running nose, says she feels terrible, waiting for Subutex dose Objective Data Objective Data Vital Signs: Vital Signs Temp Pulse Resp BP Pulse Ox O2 Del Method 98.0 F 90 18 109/64 94 Room Air 12/06/22 08:49 12/06/22 08:50 12/06/22 08:49 12/06/22 08:49 12/06/22 08:49 12/06/22 08:49 Oxygen Delivery Method Room Air Weight: 68.1 kg Body Mass Index (BMI) 27.4 Intake & Output: Intake and Output for Last 24 Hours 12/04/22 12/05/22 12/06/22 23:59 23:59 23:59 Intake Total 500 / 500 Balance 500 / 500 Lab / Micro Data Result Diagrams: 12/05/22 05:27 12/05/22 05:27 Physical Exam Narrative General: Alert, appears uncomfortable HEENT: normocephalic Eyes: No acute abnormalities noted Neck: Supple Respiratory: Clear to auscultation bilaterally, normal respiratory effort Cardiovascular: Regular rate and rhythm GI: Soft, nontender, nondistended Extremities: No edema Musculoskeletal: Moving all extremities Neuro: No overt focal neurological deficits Skin: No rashes appreciated Psych: Overall cooperative but does appear uncomfortable Assessment & Plan Assessment/Plan (1) Heroin addiction: (2) Nicotine dependence: (3) Desire for detoxification: PLAN: Plan #Opioid dependence and withdrawal Review of old records show that patient was admitted on 03/30/2022 and discharged on 04/02/2022 for opioid detoxification. At that time patient signed out AMA. Patient be started on Subutex and other adjunctive medications: Gabapentin as needed; dicyclomine as needed; Vistaril as needed; methocarbamol as needed; clonidine as needed; Imodium as needed; and Zofran as needed. Monitor COWS and CINA score -12/06: Ramp protocol, Subutex started Leukocytosis White blood count of 16,800 on presentation. Likely reactive. Trend. -12/06: A.m. draw pending, is lymphocytic predominant. Do not think active infection is present Tobacco abuse Counseled Nicotine patch and gum prescribed. Bipolar disorder Persistent. Lamictal, sertraline and trazodone continued. DVT prophylaxis Low risk Encourage to ambulate Charges/Coding Visit Charges Inpatient E&M: 65514 Subs Hosp L2
[2022-12-06 10:47] LABS: Absolute Lymphocyte Count 2.34 X10^3/uL (0.83-4.51); Absolute Neutrophil Count 8.5 X10^3/uL (2.0-7.7); Basophil# 0.07 X10^3/uL; Basophil% 0.6 % (0-1); Eosinophil# 0.28 X10^3/uL; Eosinophils% 2.3 % (0-5); Hematocrit 38.8 % (37-47); Hemoglobin 12.8 g/dL (12.0-15.0); Lymphocyte # 2.34 X10^3/ul (0.83-4.51); Lymphocyte % 19.5 % (19-41); Mean Corpuscular Hgb 31.4 pg (27.0-32.0); Mean Corpuscular Volume 95.3 fL (81-99); Mean Platelet Vol. 11.1 fl (6.2-12.0); Monocyte# 0.76 X10^3/uL; Monocyte% 6.3 % (0-10); NRBC Flagged by Analyzer 0 % (0-5); Neutrophil # 8.48 X10^3/uL (2.7-7.7); Neutrophil % 70.8 % (47-70); Platelet Count 258 K/mm3 (150-450); RBC Distribution Width CV 12.3 % (11.6-14.6); RBC Distribution Width SD 43.3 fl (35.1-43.9); Red Blood Count 4.07 M/mm3 (4.2-5.4)
--- NOTE | 2022-12-06 11:27 | NURSING ---
updated Sammy her S. O.
[2022-12-06] MEDS: Ondansetron 8 MG Tablet PO (15:15)
[2022-12-06] MEDS: cloNIDine HCl 0.1 MG Tablet PO (15:16)
[2022-12-06] MEDS: Acetaminophen 325 MG Tablet 650 MG PO (15:21)
[2022-12-06] MEDS: traZODone 100 MG Tablet PO (21:15)
[2022-12-07 01:18] VITALS: BP 107/58; PULSE 66; RESP 16; TEMP 36.6; O2SAT 98
[2022-12-07] MEDS: Buprenorphine HCl 2 MG TAB.SUBL SL ×2 (01:20→09:37)
[2022-12-07 06:38] VITALS: BP 100/63; PULSE 66; RESP 16; TEMP 37; O2SAT 97
[2022-12-07 09:34] VITALS: BP 126/80; PULSE 80; RESP 18; TEMP 36.8; O2SAT 99
[2022-12-07] MEDS: Sertraline 50 MG Tablet PO (09:37)
[2022-12-07] MEDS: lamoTRIgine 100 MG Tablet PO (09:37)
--- NOTE | 2022-12-07 12:52 | PCM.DC.SUM ---
Providers Date of Admission: 12/05/22 Primary Care Physician: Dia Primary Care Phys Reason For Visit: DESIRE FOR DETOXIFICATION Diagnosis Discharge Diagnosis (1) Heroin addiction: Status: Acute Code(s): F11.20 - Opioid dependence, uncomplicated (2) Nicotine dependence: Status: Acute Code(s): F17.200 - Nicotine dependence, unspecified, uncomplicated (3) Desire for detoxification: Status: Acute Plan #Opioid dependence and withdrawal Tobacco abuse Bipolar disorder Medications at Discharge Home Medications lamotrigine 100 mg tablet (Lamictal) 100 mg PO BID 03/30/22 sertraline 50 mg tablet (Zoloft) 50 mg PO BID 12/05/22 trazodone 100 mg tablet 100 mg PO QHS sleep 12/05/22 Hospital Course Summary of Care Provided Minutes Spent on Discharge: 25 Hospital Course: 37 Y/O female w/ hx of polysubstance abuse presented for opioid detox. On the day patient left she reported feeling better than she did yesterday but still feeling somewhat generally uncomfortable overall. Received message that patient decided she was going to leave and she left AMA PT LEFT AMA 12/07/22 Physical Exam Narrative General: Alert, oriented, no apparent distress HEENT: Atraumatic, normocephalic Eyes: extraocular movements grossly intact Neck: Supple Respiratory: normal respiratory effort Cardiovascular: no edema appreciated GI: nondistended Extremities: Moving all extremities Neuro: No overt focal neurological deficits Psych: Cooperative Weight / BMI Weight Weight: 68.1 kg Body Mass Index (BMI) 27.4 ABG / Lab / Microbiology Data Result Diagrams: 12/06/22 10:40 12/05/22 05:27 Meaningful Use Info Meaningful Use Diagnoses (Choose all that apply): None applicable Discharge Plan Admission Admit Date/Time: 12/05/22 06:08 Attending Provider: Lillian Baron Primary Care Provider: Care Physician,No Primary Consulting Providers: Delfin Chanel Discharge Orders/Prescriptions Prescriptions: No Action lamotrigine [Lamictal] 100 mg Tablet 100 mg PO BID trazodone 100 mg Tablet 100 mg PO QHS sertraline [Zoloft] 50 mg Tablet 50 mg PO BID Referrals / Follow Up: Care Physician,No Primary [Primary Care Provider] - Disposition Disposition (needs filled in before D/C Order can be placed): Against Medical Advice Charges/Coding Visit Charges Inpatient E&M: 62110 Disch Hosp
== END 2022-12-07 10:28 | disposition left against medical advice (07) | DRG 770 ==
LOC: ED 06:21 → MS3 08:31
PROVIDERS: Admitting Provider Hospitalist; Emergency Provider Student in an Organized Health Care Education/Training Program; Visit Provider Internal Medicine
DX: F11.23 Opioid dependence with withdrawal (principal); F14.10 Cocaine abuse, uncomplicated; F31.9 Bipolar disorder, unspecified; F17.210 Nicotine dependence, cigarettes, uncomplicated; Z79.899 Other long term (current) drug therapy
CPT/HCPCS: 36415; 80048; 80307; 81025; 82077; 85025; 99221; 99283; G0378

== ENCOUNTER 2024-03-27 23:06 | Emergency (ER) | payer MEDICAID, SELFPAY ==
[2024-03-27 23:08] VITALS: BP 123/72; PULSE 95; RESP 17; TEMP 37.1; O2SAT 97
--- NOTE | 2024-03-27 23:27 | EDS_ITS ---
HPI HPI - GI History of Present Illness Chief Complaint: Abd Pain Informant: patient and family Narrative Narrative: 39-year-old female states she has not had a bowel movement for 1 month, she has been having diffuse abdominal pain and distention for 2 weeks, and vomiting off-and-on for the last week or 2 now to the point where she cannot take the symptoms anymore. Pain is worse in her right upper quadrant. She has had a remote cholecystectomy no other abdominal surgeries. Earlier in the process of the last months symptoms, she had an x-ray and some blood work, she states she was told I have a bowel blockage and an infection suggesting that she was told that based on an elevated white blood count. She states that this was with her doctor in [place]. This is her first visit to the ER for this. Family states she has had a 30 pound weight gain in the past month; the patient states she feels dehydrated because she cannot keep down any fluids due to all of the vomiting which is worse since yesterday. It is nonbloody. She is urinating. [facility] Medical History (Updated 03/28/24 @ 02:[address] Jamar Caldera MD) Bipolar disorder Anxiety Cirrhosis Hepatitis DVT (deep venous thrombosis) Seizures Depression Smoker Desire for detoxification Substance abuse Bipolar 1 disorder Home Medications ?Medication ?Instructions ?Recorded ?Last Taken ?Type lamotrigine 100 mg tablet 200 mg PO DAILY 03/30/22 Unknown History (Lamictal) trazodone 100 mg tablet 100 mg PO QHS sleep 12/05/22 Unknown History buprenorphine 8 mg-naloxone 2 mg 1 film sublingual TID 03/28/24 Unknown History sublingual film gabapentin 800 mg tablet 800 mg PO TID 03/28/24 Unknown History levofloxacin 750 mg tablet 750 mg PO Q24H #4 tabs 03/28/24 Unknown Rx ondansetron 8 mg disintegrating 8 mg PO Q8H PRN nausea and 03/28/24 Unknown Rx tablet vomiting #15 tabs Allergy/AdvReac Type Severity Reaction Status Date / Time ketorolac (From Toradol) Allergy Hives Verified 12/05/22 04:25 latex Allergy Hives Verified 12/05/22 04:25 morphine Allergy Rash Verified 12/05/22 04:25 Family History Other Liver disease Surgical History (Updated 03/28/24 @ 00:02 by Ofe Orr) History of embolic filter insertion History of cholecystectomy Social History Smoking Status: Current every day smoker tobacco type: cigarettes ROS ROS ED Constitutional Constitutional ED: Denies chills or fever(s) Eyes Eyes: Denies change in vision or diplopia ENT ENT ED: Denies rhinorrhea or sore throat Cardiovascular Cardiovascular: Denies chest pain or palpitations Respiratory/Chest Respiratory/Chest: Denies cough or dyspnea Gastrointestinal Gastrointestinal: Reports abdominal pain, nausea and vomiting; Denies diarrhea or melena Genitourinary Genitourinary ED: Denies dysuria or hematuria Musculoskeletal Musculoskeletal: Denies back pain or neck pain Integumentary Denies abscess or rash Neurologic Neurologic: Denies headache(s), paresthesias or weakness Psychiatric Psychiatric: Denies suicidal thoughts EXAM Physical Exam Const Vital Signs: 03/27/24 23:08 Temperature 98.7 F Temperature Source Temporal Pulse Rate 95 Respiratory Rate 17 Blood Pressure 123/72 H Blood Pressure Mean 89 Pulse Ox 97 Oxygen Delivery Method Room Air Positive well nourished and well developed General Appearance ED: well developed and NAD HEENT Reports moist mucous membranes normocephalic and atraumatic Eyes PERRL and EOMs intact bilaterally Neck full ROM and supple Resp normal respiratory effort and clear to auscultation bilaterally Cardio regular rate, regular rhythm and no murmurs Rate: Negative for tachycardic GI GI Narrative: Diffusely distended and tender. No guarding or rebound. Auscultation: normoactive bowel sounds Palpation: soft Back/Spine no CVA tenderness General Back: other FROM Extremity normal to inspection General Extremety ED: Negative for edema, pulses abnormal or tenderness General Extremity: Negative for edema or pulses abnormal Neuro oriented x3, CN's II-XII intact bilaterally and no sensory deficits noted Sensorium / Orientation: awake and alert Motor Exam: strength 5/5 throughout Psych mental status grossly normal and thought process normal Mood & Affect: anxious Skin no rashes or lesions noted and no wounds General Skin Exam: Negative for jaundice MDM MDM MDM Narrative Medical decision making narrative: Given the patient's history and exam, I thought a CT is warranted. Obtain labs, I reviewed those. Very slight nonspecific elevations of AST and ALT without other liver enzyme elevations and negative lipase, negative rule out ectopic, urine shows no signs of acute infection. I reviewed the CT images as well as the result which I agree with, it shows left lower lobe patchy airspace disease consistent with pneumonia and basically is negative for anything else acute except for moderate stool in the colon. I discussed this with the patient and her family. It was only at this point that they state that 3 weeks ago she was diagnosed with pneumonia that went to double pneumonia and she was on doxycycline she finished the course maybe 1.5-2 weeks ago. Her cough and mild dyspnea with exertion have been present the whole time but they have been improved, still there a little. Therefore I think treating her as an outpatient with oral Levaquin is reasonable, her vital signs are normal she is not hypoxemic or in respiratory distress even with walking. With regards to her abdomen, we talked more about doing a soapsuds enema here which she is amenable to, but they provide me with more detailed history. She has not he been having bowel movements in the past month, it is just that she has been constipated in the past month. Enemas have indeed helped her have bowel movements at home, initially they told me that everything they are trying which is MiraLAX, stool softeners, laxatives, and enemas have done nothing which is actually not the case. They state her last good bowel movement was 6 or 10 days ago, and other than that it has just been rabbit pellets. Plan is to do a soapsuds enema, and then send her home to follow-up continuing with Colace and MiraLAX daily and prescription for the rest of a 5-day course of Levaquin 750. Lab Data Attestation: I reviewed the patient's lab results. Labs: Laboratory Results - last 24 hr 03/28/24 00:26 WBC 11.8 H RBC 4.27 Hgb 13.4 Hct 39.7 MCV 93.0 MCH 31.4 MCHC 33.8 RDW Std Deviation 44.0 H RDW Coeff of Karla 13.0 Plt Count 172 MPV 11.2 Immature Gran % (Auto) 0.400 Neut % (Auto) 62.9 Lymph % (Auto) 25.1 [place] % (Auto) 8.8 Eos % (Auto) 2.3 Baso % (Auto) 0.5 Absolute Neuts (auto) 7.4 Absolute Lymphs (auto) 2.96 Nucleated RBC % 0 Sodium 136 Potassium 4.2 Chloride 106 Carbon Dioxide 27.0 Anion Gap 3 L BUN 8 Creatinine 0.79 Est GFR (MDRD) Af Amer 105 Est GFR (MDRD) Non-Af 87 BUN/Creatinine Ratio 10.2 Glucose 96 Calcium 8.6 Total Bilirubin 0.40 AST 94 H ALT 96 H Alkaline Phosphatase 90 Total Protein 8.3 H Albumin 3.5 Globulin 4.8 H Albumin/Globulin Ratio 0.7 L Lipase 17 Serum , Qual NEGATIVE Urine Color Yellow Urine Clarity Clear Urine pH 8.0 Ur Specific [place] 1.010 Urine Protein Negative Urine Glucose (UA) Normal Urine Ketones Negative Urine Occult Blood Negative Urine Nitrite Negative Urine Bilirubin Negative Urine Urobilinogen Normal Ur Leukocyte Esterase 25 H Urine RBC 0-5 SEEN Urine WBC 0 SEEN Ur Squamous Epith Cells 0-5 SEEN Urine Bacteria 0 SEEN Urine Mucus 0 SEEN Radiography Diagnostic Testing: Clinical Impression(s) from Imaging Studies Abdomen/Pelvis CT 03/28/24 23:27 IMPRESSION: 1. Patchy airspace disease in the left lower lobe. Findings may indicate pneumonia. 2. Moderate amount of stool in the colon. Electronically Signed: Francisco Gregorio MD at 1:50 EDT , Discharge Plan Triage Chief Complaint: Abd Pain ED Provider: Jamar Caldera Dx/Rx/DC Orders Clinical Impression: Left lower lobe pneumonia, Diffuse abdominal pain, Vomiting, Constipation Instructions: ED Constipation (Adult), ED Pneumonia (Adult) Prescriptions: New levofloxacin 750 mg tablet 750 mg PO Q24H Qty: 4 0RF ondansetron 8 mg tablet,disintegrating 8 mg PO Q8H PRN (Reason: nausea and vomiting) Qty: 15 0RF Continued lamotrigine [Lamictal] 100 mg Tablet 200 mg PO DAILY buprenorphine-naloxone 8-2 mg film 1 film sublingual TID Patient Comments: PLACE 1 STRIP UNDER THE TONGUE THREE TIMES DAILY. ALLOW TO DISSOLVE SLOWLY IN MOUTH WITHOUT CHEWING OR SWALLOWING gabapentin 800 mg tablet 800 mg PO TID Patient Comments: TAKE 1 TABLET BY MOUTH THREE TIMES DAILY Held trazodone 100 mg Tablet 100 mg PO QHS Hold Instructions: Resume on 04/03/24. while on antibiotic Primary Care Provider: DARCIE MONROY Referrals: DARCIE MONROY [Other] - 3-5 Days Activity Restrictions/Additional Instructions: Take Colace 100 mg capsule twice daily in addition to MiraLAX 1 capful at least once daily along with plenty of fluids; if you are vomiting and not able to keep fluids down well, you should skip the MiraLAX because you need to drink plenty of fluids while on that to keep from getting dehydrated. Use the prescription Zofran as needed. Print Language: Occitan Disposition Disposition: Home, Self Care
[2024-03-28 00:37] LABS: Absolute Lymphocyte Count 2.96 X10^3/uL (0.83-4.51); Absolute Neutrophil Count 7.4 X10^3/uL (2.0-7.7); Basophil# 0.06 X10^3/uL; Basophil% 0.5 % (0-1); Eosinophil# 0.27 X10^3/uL; Eosinophils% 2.3 % (0-5); Hematocrit 39.7 % (37-47); Hemoglobin 13.4 g/dL (12.0-15.0); Lymphocyte # 2.96 X10^3/ul (0.83-4.51); Lymphocyte % 25.1 % (19-41); Mean Corp Hgb Conc 33.8 g/dL (32-36); Mean Corpuscular Hgb 31.4 pg (27.0-32.0); Mean Platelet Vol. 11.2 fl (6.2-12.0); Monocyte# 1.04 X10^3/uL; Monocyte% 8.8 % (0-10); NRBC Flagged by Analyzer 0 % (0-5); Neutrophil # 7.43 X10^3/uL (2.7-7.7); Neutrophil % 62.9 % (47-70); Platelet Count 172 K/mm3 (150-450); Red Blood Count 4.27 M/mm3 (4.2-5.4); White Blood Count 11.8 K/mm3 (4.4-11.0)
[2024-03-28] MEDS: Ondansetron 4 MG/2 ML Vial IV (00:38)
[2024-03-28] MEDS: 0.9% Normal Saline (1000mL) 1,000 ML 999 ML IV (00:38)
[2024-03-28] MEDS: HYDROmorphone 1 MG/ML Syringe IV (00:38)
[2024-03-28 00:47] LABS: Internal QC Validated? YES +Cl - CLEAR BKGD; Pregnancy, Serum, hCG Quali. NEGATIVE Negative
[2024-03-28 00:48] LABS: Bacteria 0 SEEN /hpf (None Seen); Mucous, Urine 0 SEEN /hpf (<or=2+); White Blood Cells 0 SEEN /hpf (0-5)
[2024-03-28 00:54] LABS: ALB/GLOB Ratio 0.7 RATIO (0.9-2.4); AST(SGOT) 94 U/L (15-37); Alanine Aminotransfer ALT/SGPT 96 U/L (13-56); Albumin, Serum 3.5 g/dL (3.2-5.0); Alkaline Phosphatase 90 U/L (45-117); Anion Gap 3 (5-15); BUN 8 mg/dL (7-18); BUN/Creat Ratio 10.2 RATIO (10-20); Calcium,Total 8.6 mg/dL (8.5-10.1); Chloride 106 mmol/L (98-107); Creatinine, Serum 0.79 mg/dL (0.55-1.02); EST Glomerular Filtration Rate 87 mL/min (>60); Est Glom Filt Rate - Afr Amer 105 mL/min (>60); Globulin 4.8 g/dL (2.2-4.2); Glucose 96 mg/dL (74-106); Lipase 17 U/L (13-75); Potassium 4.2 mmol/L (3.5-5.1); Protein, Total 8.3 g/dL (6.4-8.2); Sodium Level 136 mmol/L (136-145)
[2024-03-28 00:59] LABS: Color, Urine Yellow (Yellow); Glucose, Dipstick Normal (Normal); Ketone-Dipstick Negative (Negative); Leukocyte Esterase-Dipstick 25 /ul (Negative); Nitrite-Dipstick Negative (Negative); Occult Blood-Urine Negative /ul (Negative); Protein-Dipstick Negative (Negative); Urine Bilirubin Dipstick Negative (Negative); Urine Clarity Clear (Clear); Urine Urobilinogen Normal (Normal)
[2024-03-28 01:06] VITALS: BP 122/72; PULSE 84; RESP 16; O2SAT 96
[2024-03-28 01:17] LABS: Red Blood Cells-Urine 0-5 SEEN /hpf (0-5); Squamous Epithelial Cells - UA 0-5 SEEN /hpf (5-10)
[2024-03-28] MEDS: levoFLOXacin 750 MG Tablet PO (02:34)
[2024-03-28 02:43] VITALS: BP 121/78; PULSE 87; RESP 16; TEMP 36.6; O2SAT 96
[2024-03-28 03:00] VITALS: BP 123/75; PULSE 81; RESP 16; O2SAT 96
--- NOTE | 2024-03-28 23:27 | CT_ITS ---
EXAM: CT ABDOMEN AND PELVIS WITH INTRAVENOUS CONTRAST CLINICAL INDICATION: diffuse pain, vomiting, no BMs TECHNIQUE: Helically acquired images were obtained of the abdomen and pelvis with intravenous contrast. This CT exam was performed using one or more of the following dose reduction techniques: automated exposure control, adjustment of the mA and/or kV according to patient size, and/or use of iterative reconstruction technique. CONTRAST: IV 100mL Isovue-370 RADIATION DOSE: CTDIvol = 16.09 mGy, DLP = 1075.35 mGy-cm COMPARISON: No relevant prior studies available. FINDINGS: LOWER THORAX: Patchy airspace disease in the left lower lobe. No cardiomegaly. No significant pericardial effusion. ABDOMEN: LIVER: Unremarkable. Homogeneous. No focal mass. GALLBLADDER AND BILE DUCTS: Cholecystectomy. No intra- or extrahepatic biliary ductal dilation. PANCREAS: Unremarkable. No focal cystic or solid mass. SPLEEN: Unremarkable. Normal size without focal cystic or solid mass. ADRENALS: Unremarkable. No nodules. KIDNEYS AND URETERS: Unremarkable. Normal renal size and position. No hydronephrosis. STOMACH AND BOWEL: Moderate amount of stool in the colon. No stomach or bowel distention. No focal inflammatory change. PELVIS: APPENDIX: The appendix is normal. BLADDER: Unremarkable. REPRODUCTIVE: Unremarkable as visualized. No mass. ABDOMEN and PELVIS: INTRAPERITONEAL SPACE: Unremarkable. No ascites or other fluid collection. No free air. BONES/JOINTS: Unremarkable. No suspicious lytic or blastic abnormality. SOFT TISSUES: Unremarkable. No discrete abdominal or pelvic wall hernia. VASCULATURE: Unremarkable. Abdominal aorta is non-dilated. LYMPH NODES: Unremarkable. No enlarged lymph nodes. CT/Abdomen/Pelvis W IV Cont ONLY IMPRESSION: 1. Patchy airspace disease in the left lower lobe. Findings may indicate pneumonia. 2. Moderate amount of stool in the colon. Electronically Signed: Francisco Gregorio MD at 1:50 EDT ,
== END 2024-03-28 03:14 | disposition home or self-care (01) ==
PROVIDERS: Emergency Provider Emergency Medicine; Visit Provider Emergency Medicine
DX: K59.00 Constipation, unspecified (principal); J18.9 Pneumonia, unspecified organism; R10.84 Generalized abdominal pain; R11.2 Nausea with vomiting, unspecified; F17.210 Nicotine dependence, cigarettes, uncomplicated; Z79.899 Other long term (current) drug therapy; Z90.49 Acquired absence of other specified parts of digestive tract
CPT/HCPCS: 74177; 80053; 81001; 83690; 84703; 85025; 96361; 96374; 96375; 99284; J7030; Q9967; A4216; J2405

== ENCOUNTER 2024-06-28 21:35 | Inpatient (IN) | payer MEDICAID, SELFPAY ==
[2024-06-28 21:37] VITALS: BP 141/84; PULSE 103; RESP 18; TEMP 36.8; O2SAT 98
[2024-06-28 21:47] VITALS: BMI 34.5
[2024-06-28] MEDS: Phenobarbital 32.4 MG Tablet 64.8 MG PO (22:19)
[2024-06-28 22:29] LABS: Mucous, Urine 0 SEEN /hpf (<or=2+); Red Blood Cells-Urine 0 SEEN /hpf (0-5)
[2024-06-28 22:32] LABS: Color, Urine Yellow (Yellow); Glucose, Dipstick Normal (Normal); Ketone-Dipstick Negative (Negative); Leukocyte Esterase-Dipstick 25 /ul (Negative); Nitrite-Dipstick Negative (Negative); Occult Blood-Urine Negative /ul (Negative); Protein-Dipstick Negative (Negative); Urine Bilirubin Dipstick Negative (Negative); Urine Clarity Clear (Clear); Urine Urobilinogen Normal (Normal)
[2024-06-28 22:36] VITALS: BP 124/88; BP 128/66; PULSE 74; PULSE 80; RESP 18; TEMP 36.6; O2SAT 98
[2024-06-28 22:39] LABS: Bacteria RARE /hpf (None Seen); Squamous Epithelial Cells - UA 0-5 SEEN /hpf (5-10); White Blood Cells 0-5 SEEN /hpf (0-5)
[2024-06-28 22:45] LABS: Amphetamine Urine VISTA NEGATIVE (<1000 ng/mL); Barbiturate Urine VISTA NEGATIVE (< 200 ng/mL); Benzodiazepine Urine VISTA POSITIVE (< 200 ng/mL); Cocaine Urine VISTA NEGATIVE (< 300 ng/mL); Ecstacy Urine VISTA NEGATIVE (< 500 ng/mL); Methadone Urine VISTA NEGATIVE (< 300 ng/mL); PCP Urine VISTA NEGATIVE (< 25 ng/mL); THC Urine VISTA NEGATIVE (< 50 ng/mL); Vista UDS pH Range 6
[2024-06-28 23:00] VITALS: BP 126/77; PULSE 73; RESP 18; TEMP 36.6; O2SAT 97
[2024-06-28 23:17] LABS: Absolute Lymphocyte Count 4.87 X10^3/uL (0.83-4.51); Absolute Neutrophil Count 4.9 X10^3/uL (2.0-7.7); Basophil# 0.06 X10^3/uL; Basophil% 0.5 % (0-1); Eosinophil# 0.29 X10^3/uL; Eosinophils% 2.7 % (0-5); Hematocrit 41.3 % (37-47); Hemoglobin 13.8 g/dL (12.0-15.0); Lymphocyte # 4.87 X10^3/ul (0.83-4.51); Lymphocyte % 44.6 % (19-41); Mean Corp Hgb Conc 33.4 g/dL (32-36); Mean Corpuscular Hgb 30.7 pg (27.0-32.0); Mean Platelet Vol. 10.9 fl (6.2-12.0); Monocyte# 0.81 X10^3/uL; Monocyte% 7.4 % (0-10); NRBC Flagged by Analyzer 0 % (0-5); Neutrophil # 4.87 X10^3/uL (2.7-7.7); Neutrophil % 44.5 % (47-70); Platelet Count 244 K/mm3 (150-450); RBC Distribution Width CV 12.2 % (11.6-14.6); RBC Distribution Width SD 41.1 fl (35.1-43.9); Red Blood Count 4.49 M/mm3 (4.2-5.4); White Blood Count 10.9 K/mm3 (4.4-11.0)
[2024-06-28 23:26] LABS: Internal QC Validated? YES +Cl - CLEAR BKGD; Pregnancy, Serum, hCG Quali. NEGATIVE Negative
[2024-06-28 23:32] LABS: Alcohol, Blood (Medical)-Serum < 3.0 mg/dL
[2024-06-28 23:35] LABS: ALB/GLOB Ratio 0.8 RATIO (0.9-2.4); AST(SGOT) 19 U/L (15-37); Alanine Aminotransfer ALT/SGPT 28 U/L (13-56); Albumin, Serum 4.1 g/dL (3.2-5.0); Alkaline Phosphatase 84 U/L (45-117); Anion Gap 5 (5-15); BUN 9 mg/dL (7-18); BUN/Creat Ratio 13.1 RATIO (10-20); Calcium,Total 9.4 mg/dL (8.5-10.1); Chloride 104 mmol/L (98-107); Creatinine, Serum 0.69 mg/dL (0.55-1.02); EST Glomerular Filtration Rate 101 mL/min (>60); Est Glom Filt Rate - Afr Amer 122 mL/min (>60); Estimated Creatinine Clearance 111.18 ml/min; Globulin 5.2 g/dL (2.2-4.2); Glucose 101 mg/dL (74-106); Potassium 3.8 mmol/L (3.5-5.1); Protein, Total 9.3 g/dL (6.4-8.2); Sodium Level 134 mmol/L (136-145)
[2024-06-29] VITALS (7 sets, daily range): BP systolic 98–130; BP diastolic 58–86; PULSE 71–92; RESP 16–18; TEMP 36.4–36.8; O2SAT 94–100; BMI 34.4
[2024-06-29] MEDS: Acetaminophen 325 MG Tablet 650 MG PO (01:58)
[2024-06-29] MEDS: hydrOXYzine PAM 25 MG Capsule 50 MG PO ×2 (01:58→12:39)
[2024-06-29] MEDS: Phenobarbital 32.4 MG Tablet 64.8 MG PO ×6 (01:58→21:41)
[2024-06-29] MEDS: Gabapentin 800 MG Tablet PO ×4 (02:21→22:36)
[2024-06-29] MEDS: Methocarbamol 750 MG Tablet PO (02:21)
[2024-06-29] MEDS: cloNIDine HCl 0.1 MG Tablet PO (02:21)
[2024-06-29] MEDS: buprenorphine HCL 8 MG TAB.SUBL SL ×3 (04:36→22:36)
[2024-06-29] MEDS: SOFOSBUVIR PO (06:36)
[2024-06-29] MEDS: VELPATASVIR PO (06:36)
[2024-06-29] MEDS: LINACLOTIDE 145 MCG CAPSULE PO (06:36)
[2024-06-29] MEDS: Thiamine Hydrochloride 100 MG Tablet PO (08:38)
[2024-06-29] MEDS: Folic Acid 1 MG Tablet PO (08:38)
[2024-06-29] MEDS: lamoTRIgine 100 MG Tablet 200 MG PO (09:27)
[2024-06-29] MEDS: Enoxaparin 40 MG/0.4 ML Syringe SC (09:28)
[2024-06-29] MEDS: traZODone 100 MG Tablet PO (22:36)
[2024-06-30] MEDS: Phenobarbital 32.4 MG Tablet 64.8 MG PO ×6 (02:38→22:06)
[2024-06-30 04:35] VITALS: BP 98/57; PULSE 77; RESP 18; TEMP 36.7; O2SAT 94
[2024-06-30 05:06] VITALS: BMI 36.0
[2024-06-30] MEDS: SOFOSBUVIR PO (06:47)
[2024-06-30] MEDS: Gabapentin 800 MG Tablet PO ×3 (06:47→22:06)
[2024-06-30] MEDS: VELPATASVIR PO (06:47)
[2024-06-30] MEDS: LINACLOTIDE 145 MCG CAPSULE PO (06:47)
[2024-06-30] MEDS: buprenorphine HCL 8 MG TAB.SUBL SL ×3 (08:21→22:06)
[2024-06-30] MEDS: Folic Acid 1 MG Tablet PO (08:21)
[2024-06-30] MEDS: Thiamine Hydrochloride 100 MG Tablet PO (08:21)
[2024-06-30] MEDS: lamoTRIgine 100 MG Tablet 200 MG PO (08:25)
[2024-06-30] MEDS: Enoxaparin 40 MG/0.4 ML Syringe SC (08:25)
[2024-06-30 09:03] VITALS: BP 103/63; PULSE 62; RESP 16; TEMP 36.6; O2SAT 95
[2024-06-30 11:22] VITALS: BP 101/61; PULSE 83; RESP 16; TEMP 36.9; O2SAT 99
[2024-06-30 15:24] VITALS: BP 107/64; PULSE 86; RESP 16; TEMP 36.6; O2SAT 99
[2024-06-30 21:59] VITALS: BP 123/87; PULSE 78; RESP 18; TEMP 36.8; O2SAT 100
[2024-06-30] MEDS: traZODone 100 MG Tablet PO (22:06)
[2024-07-01 03:26] VITALS: BMI 36.7
[2024-07-01 05:06] VITALS: BP 100/85; PULSE 79; RESP 18; TEMP 36.6; O2SAT 97
[2024-07-01] MEDS: VELPATASVIR PO (05:12)
[2024-07-01] MEDS: SOFOSBUVIR PO (05:12)
[2024-07-01] MEDS: LINACLOTIDE 145 MCG CAPSULE PO (05:12)
[2024-07-01] MEDS: Gabapentin 800 MG Tablet PO (05:13)
[2024-07-01] MEDS: Phenobarbital 32.4 MG Tablet 64.8 MG PO (05:13)
[2024-07-01] MEDS: buprenorphine HCL 8 MG TAB.SUBL SL (05:13)
== END 2024-07-01 07:30 | disposition left against medical advice (07) | DRG 770 ==
LOC: ED 23:27 → MS3 06-29 00:44
PROVIDERS: Admitting Provider Internal Medicine; Emergency Provider Emergency Medicine; PCP Family Medicine; Visit Provider Student in an Organized Health Care Education/Training Program
DX: F13.139 Sedative, hypnotic or anxiolytic abuse with withdrawal, unspecified (principal); E66.9 Obesity, unspecified; F31.9 Bipolar disorder, unspecified; K58.9 Irritable bowel syndrome, unspecified; F17.210 Nicotine dependence, cigarettes, uncomplicated; Z68.34 Body mass index [BMI] 34.0-34.9, adult; Z86.718 Personal history of other venous thrombosis and embolism; Z79.899 Other long term (current) drug therapy; Z53.29 Procedure and treatment not carried out because of patient's decision for other reasons
CPT/HCPCS: 36415; 80053; 80307; 81001; 82077; 84703; 85025; 99283

== ENCOUNTER 2024-12-25 20:00 | Observation (INO) | payer MEDICAID, SELFPAY ==
[2024-12-25 20:02] VITALS: BP 144/90; PULSE 105; RESP 16; TEMP 36.6; O2SAT 100; BMI 36.0
--- NOTE | 2024-12-25 20:25 | EX.ED.SAOD ---
HPI History of Present Illness Chief Complaint: Substance Abuse Informant: patient and spouse/S.O. Narrative Narrative: 39-year-old female requesting detox from fentanyl and benzodiazepine. Patient states that she last saw detox last fall. She states her stepmom and she was associated with the wrong family members and began using again. She states that she uses her fentanyl IV particularly in the hands. She also uses benzodiazepines regularly. She was just admitted at [facility] following a VATS procedure for wedge resection of the lung. She was seen in the emergency department there with postoperative pain in the early hours of 25 December. Patient states that she last used fentanyl and benzodiazepines yesterday. She states that she feels really poorly not sleeping well and is feeling a lot of withdrawal symptoms. She is a smoker does not wish a patch. She denies any abscesses. She does not feel that she needs an HIV test as she states that she was recently tested. Dressing from the VATS procedure was changed earlier today. She does note some pain from that procedure. [facility] Medical History (Updated 12/25/24 @ 21:[address] Eneida Ramos MD) COPD (chronic obstructive pulmonary disease) History of seizures Bipolar disorder Anxiety Cirrhosis Hepatitis DVT (deep venous thrombosis) Seizures Depression Smoker Desire for detoxification Substance abuse Bipolar 1 disorder Home Medications ?Medication ?Instructions ?Recorded ?Last Taken ?Type lamotrigine 100 mg tablet 200 mg PO DAILY 03/30/22 Unknown History (Lamictal) trazodone 100 mg tablet 100 mg PO QHS sleep 12/05/22 Unknown History buprenorphine 8 mg-naloxone 2 mg 1 film sublingual TID 03/28/24 Unknown History sublingual film Held on 12/25/24. Instructions: From surgery. gabapentin 800 mg tablet 800 mg PO TID 03/28/24 Unknown History ondansetron 8 mg disintegrating 8 mg PO Q8H PRN nausea and 03/28/24 Unknown Rx tablet vomiting #15 tabs linaclotide 145 mcg capsule 145 mcg PO DAILY IBS from opiates 06/29/24 06/28/24 06:00 History 145 mcg acetaminophen 325 mg tablet 325 mg PO Q4H PRN pain (scale 12/25/24 12/24/24 History score 1-3) albuterol sulfate 90 mcg/actuation 2 puff inhalation Q4H PRN PRN 12/25/24 12/24/24 History aerosol inhaler shortness of breath or wheezing cholecalciferol (vitamin D3) 1,250 1,250 mcg PO .weekly 12/25/24 12/24/24 History mcg (50,000 unit) capsule clonidine HCl 0.1 mg tablet 0.1 mg PO TID anxiety 12/25/24 12/25/24 History doxycycline hyclate 100 mg capsule 100 mg PO BID 12/25/24 12/25/24 History duloxetine 60 mg capsule,delayed 60 mg PO DAILY 12/25/24 12/25/24 History release epinephrine 1 mg/mL injection 0.1 mg IM Q30M PRN anaphylaxis 12/25/24 Unknown History solution (Adrenalin) ergocalciferol (vitamin D2) 1,250 1,250 mcg PO QWEEK 12/25/24 12/24/24 History mcg (50,000 unit) capsule fluticasone furoate 100 1 inh inhalation DAILY 12/25/24 12/25/24 History mcg-vilanterol 25 mcg/dose inhalation powder (Breo Ellipta) ibuprofen 600 mg tablet 600 mg PO Q6H PRN PRN pain 12/25/24 12/24/24 History mometasone-formoterol HFA 200 2 puff inhalation PRN PRN 12/25/24 Unknown History mcg-5 mcg/actuation aerosol shortness of breath inhaler (Dulera) ondansetron 4 mg disintegrating 4 mg PO Q6H PRN PRN nausea and 12/25/24 Unknown History tablet vomiting oxycodone 5 mg tablet 5 mg PO 4X/DAY PRN PRN pain 12/25/24 Unknown History quetiapine 100 mg tablet 100 mg PO QHS 12/25/24 12/24/24 History tizanidine 4 mg tablet 4 mg PO BID 12/25/24 12/24/24 History Allergy/AdvReac Type Severity Reaction Status Date / Time Penicillins Allergy Severe Anaphylaxis Verified 12/25/24 20:02 venom-honey bee Allergy Severe Anaphylaxis Verified 12/25/24 20:02 ketorolac (From Toradol) Allergy Hives Verified 12/25/24 20:02 latex Allergy Hives Verified 12/25/24 20:02 morphine Allergy Rash Verified 12/25/24 20:02 Family History Other Liver disease Surgical History S/P video-assisted thoracoscopic surgery (VATS) History of embolic filter insertion History of cholecystectomy Social History Smoking Status: Current every day smoker tobacco type: cigarettes substance use type: other details: Benzodiazepines ROS ROS ED Constitutional Constitutional ED: Denies chills or weight loss Eyes Eyes: Denies change in vision or diplopia ENT ENT ED: Reports rhinorrhea; Denies ear pain or sore throat Cardiovascular Cardiovascular: Reports chest pain and other Details: See history of present illness ; Denies orthopnea, palpitations or racing heartbeat Respiratory/Chest Respiratory/Chest: Reports dyspnea, dyspnea on exertion and other Details: No change in her chronic shortness of breath ; Denies cough or orthopnea Gastrointestinal Gastrointestinal: Reports nausea; Denies abdominal pain, diarrhea or vomiting Genitourinary Genitourinary ED: Denies dysuria, hematuria or urinary frequency Musculoskeletal Musculoskeletal: Denies arthralgias or myalgias Integumentary Denies abscess or rash Neurologic Neurologic: Reports headache(s); Denies weakness Psychiatric Psychiatric: Reports anxiety and depression; Denies suicidal ideation or suicidal thoughts Endocrine Endocrinology: Denies polydipsia, polyphagia or polyuria Allergic/Immunologic Allergic/Immunologic ED: Denies mouth swelling, tongue swelling or urticaria EXAM Physical Exam Const Vital Signs: 12/25/24 20:02 12/25/24 21:02 Temperature 98 F 98.9 F Temperature Source Temporal Oral Pulse Rate 105 H 95 Respiratory Rate 16 18 Blood Pressure 144/90 H 106/74 Blood Pressure Mean 108 84 Pulse Ox 100 96 Oxygen Delivery Method Room Air Room Air Positive well nourished, well developed and obese General Appearance ED: well developed and NAD Nutritional Appearance: obese HEENT Reports normocephalic, head/scalp atraumatic and moist mucous membranes Eyes PERRL and EOMs intact bilaterally Neck no lymphadenopathy, supple and no JVD Chest Wall Chest Narrative: Healing incisions in the left axilla chest wall. I do not appreciate significant erythema or drainage. Resp normal respiratory effort Auscultation: rhonchi left lower Cardio regular rate, regular rhythm and no murmurs Rate: tachycardic GI normal to inspection, nondistended, normoactive bowel sounds and non-tender Palpation: soft Back/Spine no CVA tenderness and normal ROM Extremity normal to inspection General Extremety ED: Negative for edema General Extremity: Negative for edema Neuro oriented x3 and CN's II-XII intact bilaterally Sensorium / Orientation: alert Motor Exam: strength 5/5 throughout Psych mental status grossly normal Mood & Affect: Negative for depressed or tearful Skin no rashes or lesions noted and no wounds MDM MDM MDM Narrative Medical decision making narrative: Differential diagnosis includes but not limited to benzodiazepine and opiate withdrawal/abuse pneumonia pleural effusion postoperative infection My independent interpretation of the chest x-ray is no pneumothorax or infiltrate. Normal mediastinal silhouette Basic blood work was obtained shows a white count of 12.7 hemoglobin 12.2 platelet count of 192. test is negative. Alcohol level negative. Liver enzymes show an AST of 61 ALT of 43 glucose 118 normal creatinine at 0.61. I will speak with the hospitalist regarding admission to the ramp program. History & Record Review Discussion w/independent historian: Patient and Significant other Additional record(s) reviewed:: Prior inpatient record, Prior outpatient record, Prior ED visit and Prior labs Lab Data Attestation: I reviewed the patient's lab results. Labs: Laboratory Results - last 24 hr 12/25/24 12/25/24 21:05 21:09 WBC 12.7 H RBC 3.98 L Hgb 12.2 Hct 36.3 L MCV 91.2 MCH 30.7 MCHC 33.6 RDW Std Deviation 40.3 RDW Coeff of Karla 12.0 Plt Count 192 MPV 10.4 Immature Gran % (Auto) 0.500 Neut % (Auto) 59.5 Lymph % (Auto) 28.2 [place] % (Auto) 8.6 Eos % (Auto) 2.7 Baso % (Auto) 0.5 Absolute Neuts (auto) 7.6 Absolute Lymphs (auto) 3.59 Nucleated RBC % 0 Sodium 138 Potassium 3.8 Chloride 101 Carbon Dioxide 24.1 Anion Gap 12 BUN 8 Creatinine 0.61 L Estim Creat Clear Calc 128.62 Est GFR (MDRD) Non-Af 117 BUN/Creatinine Ratio 12.8 Glucose 118 H Calcium 9.3 Total Bilirubin 0.32 AST 61 H ALT 43 H Alkaline Phosphatase 92 Total Protein 7.5 Albumin 4.0 Globulin 3.4 Albumin/Globulin Ratio 1.2 Serum , Qual NEGATIVE Urine Opiates Screen NEGATIVE U Buprenorphine Qual PRESUMPTIVE POSITIVE Ur Oxycodone Screen PRESUMPTIVE POSITIVE Urine Methadone Screen NEGATIVE Urine Fentanyl Screen PRESUMPTIVE POSITIVE Ur Barbiturates Screen NEGATIVE Ur Phencyclidine Scrn PRESUMPTIVE POSITIVE Ur Amphetamines Screen NEGATIVE U Benzodiazepines Scrn PRESUMPTIVE POSITIVE Urine Cocaine Screen NEGATIVE U Cannabinoids Screen NEGATIVE Ethyl Alcohol < 10.1 Management Discussion w/another healthcare provider: Hospitalist (Dr Ramos) Discharge Plan Triage Chief Complaint: Substance Abuse ED Provider: Jose Luis Dx/Rx/DC Orders Primary Care Provider: Madhavi Hunt
[2024-12-25 21:02] VITALS: BP 106/74; PULSE 95; RESP 18; TEMP 37.2; O2SAT 96
[2024-12-25 21:12] LABS: Absolute Lymphocyte Count 3.59 X10^3/uL (0.83-4.51); Absolute Neutrophil Count 7.6 X10^3/uL (2.0-7.7); Basophil# 0.06 X10^3/uL; Basophil% 0.5 % (0-1); Eosinophil# 0.34 X10^3/uL; Eosinophils% 2.7 % (0-5); Hematocrit 36.3 % (37-47); Hemoglobin 12.2 g/dL (12.0-15.0); Lymphocyte # 3.59 X10^3/ul (0.83-4.51); Lymphocyte % 28.2 % (19-41); Mean Corp Hgb Conc 33.6 g/dL (32-36); Mean Corpuscular Hgb 30.7 pg (27.0-32.0); Mean Corpuscular Volume 91.2 fL (81-99); Mean Platelet Vol. 10.4 fl (6.2-12.0); Monocyte% 8.6 % (0-10); NRBC Flagged by Analyzer 0 % (0-5); Neutrophil # 7.57 X10^3/uL (2.7-7.7); Neutrophil % 59.5 % (47-70); Platelet Count 192 K/mm3 (150-450); RBC Distribution Width SD 40.3 fl (35.1-43.9); Red Blood Count 3.98 M/mm3 (4.2-5.4); White Blood Count 12.7 K/mm3 (4.4-11.0)
--- NOTE | 2024-12-25 21:15 | RAD_ITS ---
PROCEDURE: CHEST 1 VIEW 12/25/2024 REASON FOR EXAM: S/P VATS (L) TECHNIQUE: Frontal view of the chest. COMPARISON: None FINDINGS: Hardware: None Heart: Slightly enlarged cardiomediastinal silhouette. Lungs: Mild bibasilar atelectasis. No focal consolidation. No pneumothorax. No pleural effusion Bones: The bones are unremarkable. Other: RAD/Chest 1 View IMPRESSION: No Acute Findings. Reading Location: [place]
[2024-12-25 21:25] LABS: Internal QC Validated? YES +Cl - CLEAR BKGD; Pregnancy, Serum, hCG Quali. NEGATIVE Negative; Record Kit Lot#, Serum Preg. 929381
[2024-12-25 21:31] LABS: Alcohol, Blood (Medical)-Serum < 10.1 mg/dL (<=10.0)
[2024-12-25 21:36] LABS: ALB/GLOB Ratio 1.2 RATIO (0.9-2.4); AST(SGOT) 61 U/L (<=31); Alanine Aminotransfer ALT/SGPT 43 U/L (<=34); Alkaline Phosphatase 92 U/L (35-104); Anion Gap 12 (5-15); BUN 8 mg/dL (4-19); BUN/Creat Ratio 12.8 RATIO (10-20); Calcium,Total 9.3 mg/dL (7.6-11.0); Carbon Dioxide 24.1 mmol/L (21.0-32.0); Chloride 101 mmol/L (98-108); Creatinine, Serum 0.61 mg/dL (0.70-1.20); EST Glomerular Filtration Rate 117 (>60); Estimated Creatinine Clearance 128.62 ml/min (50-250); Globulin 3.4 g/dL (2.2-4.2); Glucose 118 mg/dL (70-99); Potassium 3.8 mmol/L (3.3-5.1); Protein, Total 7.5 g/dL (5.9-8.4); Sodium Level 138 mmol/L (133-145); Total Bilirubin 0.32 mg/dL (0.00-1.30)
[2024-12-25 21:36] LABS: Amphetamine Urine NEGATIVE (<1000 ng/mL); Barbiturate Urine NEGATIVE (< 200 ng/mL); Benzodiazepine Urine PRESUMPTIVE POSITIVE (< 200 ng/mL); Buprenorphine Urine PRESUMPTIVE POSITIVE (< 200 ng/mL); Cocaine Urine NEGATIVE (< 300 ng/mL); Fentanyl, Urine PRESUMPTIVE POSITIVE; Methadone Urine NEGATIVE (< 300 ng/mL); Opiates Urine NEGATIVE (< 300 ng/mL); Oxycodone, Urine PRESUMPTIVE POSITIVE (< 100 ng/mL); PCP Urine PRESUMPTIVE POSITIVE (< 25 ng/mL); THC Urine NEGATIVE (< 50 ng/mL)
--- NOTE | 2024-12-25 21:48 | HP.PCM.HOS_ITS ---
HPI - General General Date of Admission: 12/25/24 Date of Service: 12/25/24 Chief Complaint: Requesting Fentanyl, BZD detox. HPI Narrative The patient is a 39 y/o F w/ PMHx: COPD, Obesity, Seizure disorder, Anxiety and Depression/Bipolar disorder, Tobacco use, Hx VTE (DVT, PE) s/p prior embolic filter insertion, Polysubstance abuse with Hx Hepatitis C with associated cirrhotic liver disease who presents to the [facility] ED on 12/25/2024 with history of significant chronic fentanyl and benzodiazepine usage with her last detox for previous fall unfortunately with her stepmother passing at that time at which point she began using again status post recent VATS procedure for a wedge resection of the lung in the [facility] seen in the emergency room at their facility for postop pain in the early hours 12/25/2024 discharge from their facility but given her significant withdrawal noting last usage of both fentanyl and benzodiazepines a day prior prompted ED evaluation. She reports recently being tested for HIV. She notes that the VATS procedure dressing was changed earlier in the day. She does note some discomfort ongoing to that region. She does report that she was recently also treated for pneumonia. She notes normally she uses 1 to 2 g of fentanyl daily and as far as benzodiazepine usually ingest them anywhere from 5-10 tabs ranging from Xanax, Ativan, Valium daily. In the ED workup included T98, heart rate 105, BP 144/90, respiratory rate 16, 100% on room air, CBC with WBC 12.7, he 1 12.2, MCV 91.2, platelets 192 without marked shift, negative serum testing, CMP with BUN/creatinine 8/0.61, GFR 117, glucose 118, AST/LT 61/43, UDS with presumptive positive buprenorphine, oxycodone, fentanyl, phencyclidine, benzodiazepines, ethyl alcohol less than 10.1, chest x-ray with no acute cardiopulmonary findings. [facility] Medical History (Updated 12/25/24 @ 22:[address] Eneida Ramos MD) Hepatitis C COPD (chronic obstructive pulmonary disease) History of seizures Bipolar disorder Anxiety Cirrhosis DVT (deep venous thrombosis) Seizures Depression Smoker Desire for detoxification Substance abuse Bipolar 1 disorder Home Medications ?Medication ?Instructions ?Recorded ?Last Taken ?Type lamotrigine 100 mg tablet 200 mg PO DAILY 03/30/22 Unk nown History (Lamictal) trazodone 100 mg tablet 100 mg PO QHS sleep 12/05/22 Unknown History buprenorphine 8 mg-naloxone 2 mg 1 film sublingual TID 03/28/24 Unknown History sublingual film Held on 12/25/24. Instructions: From surgery. gabapentin 800 mg tablet 800 mg PO TID 03/28/24 Unkno wn History ondansetron 8 mg disintegrating 8 mg PO Q8H PRN nausea and 03/28/24 Unknown Rx tablet vomiting #15 tabs linaclotide 145 mcg capsule 145 mcg PO DAILY IBS from opiates 06/29/24 06/28/24 06:00 History 145 mcg acetaminophen 325 mg tablet 325 mg PO Q4H PRN pain (sc christina 12/25/24 12/24/24 History score 1-3) albuterol sulfate 90 mcg/actuation 2 puff inhalation Q 4H PRN PRN 12/25/24 12/24/24 History aerosol inhaler shortness of breath or wheez ing cholecalciferol (vitamin D3) 1,250 1,250 mcg PO .weekl y 12/25/24 12/24/24 History mcg (50,000 unit) capsule clonidine HCl 0.1 mg tablet 0.1 mg PO TID anxiety 0511/1612/25/24 History doxycycline hyclate 100 mg capsule 100 mg PO BID 12/2512/25/24 History duloxetine 60 mg capsule,delayed 60 mg PO DAILY 12/25/24 History release epinephrine 1 mg/mL injection 0.1 mg IM Q30M PRN anaph ylaxis 12/25/24 Unknown History solution (Adrenalin) ergocalciferol (vitamin D2) 1,250 1,250 mcg PO QWEEK 0 12/25/24 12/24/24 History mcg (50,000 unit) capsule fluticasone furoate 100 1 inh inhalation DAILY 12/2512/25/24 History mcg-vilanterol 25 mcg/dose inhalation powder (Breo Ellipta) ibuprofen 600 mg tablet 600 mg PO Q6H PRN PRN pain 0 12/25/24 12/24/24 History mometasone-formoterol HFA 200 2 puff inhalation PRN [place] N 12/25/24 Unknown History mcg-5 mcg/actuation aerosol shortness of breath inhaler (Dulera) ondansetron 4 mg disintegrating 4 mg PO Q6H PRN PRN na usea and 12/25/24 Unknown History tablet vomiting oxycodone 5 mg tablet 5 mg PO 4X/DAY PRN PRN pain 12/25/24 Unknown History quetiapine 100 mg tablet 100 mg PO QHS 12/25/2412/24 History tizanidine 4 mg tablet 4 mg PO BID 12/25/24 5 History Allergy/AdvReac Type Severity Reaction Status Date / Time Penicillins Allergy Severe Anaphylaxis Verified 12/25/24 20:02 venom-honey bee Allergy Severe Anaphylaxis Verified 12/25/24 20:02 ketorolac (From Toradol) Allergy Hives Verified 12/25/24 20:02 latex Allergy Hives Verified 12/25/24 20:02 morphine Allergy Rash Verified 12/25/24 20:02 Family History (Updated 12/25/24 @ 22:[address] Eneida Ramos MD) Mother Diabetes Skin cancer Father Diabetes Graves disease Surgical History S/P video-assisted thoracoscopic surgery (VATS) History of embolic filter insertion History of cholecystectomy Social History (Updated 12/25/24 @ 22:[address] Eneida Ramos MD) household members: spouse Smoking Status: Current every day smoker tobacco type: cigarettes Smoking packs per day: 2 Smoking cigarettes per day: 40.0 alcohol intake: never substance use type: other details: Benzodiazepines ROS ROS Narrative Admission Review of Systems: CONSTITUTIONAL: No weight loss, fever, chills, weakness or fatigue. HEENT: + Congestion, rhinorrhea, headache. Eyes: No visual loss, blurred vision, double vision or yellow sclerae. Ears, Nose, Throat: No hearing loss, sneezing, sore throat. SKIN: No rash or itching, lesions, wounds. CARDIOVASCULAR: + Pleuritic chest pain status post recent VATS. No palpitations, edema, orthopnea, syncopal events. RESPIRATORY: + Dyspnea, worse with exertion which is chronic and mildly worsened recently especially given recent intervention. No markedly productive sputum, wheezing, hemoptysis. GASTROINTESTINAL: + Decreased oral intake, nausea. No vomiting or diarrhea, abdominal pain, melena, BRBPR. GENITOURINARY: No dysuria, frequency, urgency or retention. NEUROLOGICAL: + Headache. No dizziness, syncope, paralysis, ataxia, numbness or tingling in the extremities, focal weakness, change in bowel or bladder control, seizure. MUSCULOSKELETAL: No muscle, back pain, joint pain or stiffness. HEMATOLOGIC: No anemia, bleeding or bruising. LYMPHATICS: No enlarged nodes. No history of splenectomy. PSYCHIATRIC: + History of anxiety and depression. ENDOCRINOLOGIC: No reports of sweating, cold or heat intolerance. No polyuria or polydipsia. ALLERGIES: No history of asthma, hives, eczema or rhinitis. Vital Signs Vital Signs Vital Signs: 12/25/24 20:02 12/25/24 21:02 Temperature 98 F 98.9 F Temperature Source Temporal Oral Pulse Rate 105 H 95 Respiratory Rate 16 18 Blood Pressure 144/90 H 106/74 Blood Pressure Mean 108 84 Pulse Ox 100 96 Oxygen Delivery Method Room Air Room Air Weight Weight: 197 lb Body Mass Index (BMI) 36.0 Physical Exam Narrative Physical Examination: General: Awake, alert, oriented x 3 and cooperative, seated upright in the ED bed, fatigued, restless. Skin: Normal color, normal turgor, no icterus, no cyanosis except very stage ecchymoses, abrasion, evidence of peripheral injection, left-sided lateral rib cage with incisions intact with no drainage, irritation likely from tape noted. HEENT: AT/NC, EOMI, PERRLA, mildly dry MM, no carotid bruits or JVD noted. Lungs: Diminished, greater bases, significant diffuse inspiratory and expiratory wheezing, no rales or rhonchi. Heart: Mildly tachycardic with regular rhythm; no gallop, rub audible. Abdomen: Soft, obese, NTTP, distant BS, no obvious distention or significant HSM appreciated but difficult given habitus and positioning because of discomfort status post VATS. Extremities: No cyanosis, no clubbing, mild ankle to distal freitas edema, chronic per report. Neurological: Patient awake, alert, oriented as noted, cognitive function intact; pupils equally reactive to light and accommodation, cranial nerves gross normal, moving all 4 extremities, no focal deficits, strength moderately to severely globally decreased. Psychiatric: Affect appears fatigued, uncomfortable, no acute evidence of depressive or anxiety feelings but does have underlying psychiatric history. Results Lab / Micro Data 12/25/24 21:05 05/03/25 21:05 Labs: Laboratory Results - last 24 hr 12/25/24 21:05: WBC 12.7 H, RBC 3.98 L, Hgb 12.2, Hct 36.3 L, MCV 91.2, MCH 30.7, MCHC 33.6, RDW Std Deviation 40.3, RDW Coeff of Karla 12.0, Plt Count 192, MPV 10.4, Immature Gran % (Auto) 0.500, Neut % (Auto) 59.5, Lymph % (Auto) 28.2, [place] % (Auto) 8.6, Eos % (Auto) 2.7, Baso % (Auto) 0.5, Absolute Neuts (auto) 7.6, Absolute Lymphs (auto) 3.59, Nucleated RBC % 0, Sodium 138, Potassium 3.8, Chloride 101, Carbon Dioxide 24.1, Anion Gap 12, BUN 8, Creatinine 0.61 L, Estim Creat Clear Calc 128.62, Est GFR (MDRD) Non-Af 117, BUN/Creatinine Ratio 12.8, G lucose 118 H, Calcium 9.3, Total Bilirubin 0.32, AST 61 H, ALT 43 H, Alkaline Phosphatase 92, Total Protein 7.5, Albumin 4.0, Globulin 3.4, Albumin/Globulin Ratio 1.2, Serum , Qual NEGATIVE, Ethyl Alcohol < 10.1 12/25/24 21:09: Urine Opiates Screen NEGATIVE, U Buprenorphine Qual PRESUMPTIVE POSITIVE, Ur Oxycodone Screen PRESUMPTIVE POSITIVE, Urine Methadone Screen NEGATIVE, Urine Fentanyl Screen PRESUMPTIVE POSITIVE, Ur Barbiturates Screen NEGATIVE, Ur Phencyclidine Scrn PRESUMPTIVE POSITIVE, Ur Amphetamines Screen NEGATIVE, U Benzodiazepines Scrn PRESUMPTIVE POSITIVE, Urine Cocaine Screen NEGATIVE, U Cannabinoids Screen NEGATIVE Assessment & Plan Assessment/Plan (1) Benzodiazepine withdrawal: QUALIFIERS: Complication of substance-induced condition: u ncomplicated Qualified Code(s): F13.930 - Sedative, hypnotic or anxiolytic use, unspecified with withdrawal, uncomplicated (2) Opiate withdrawal: PLAN: Plan The patient is a 39 y/o F w/ PMHx: COPD, Obesity, Seizure disorder, Anxiety and Depression/Bipolar disorder, Tobacco use, Hx VTE (DVT, PE) s/p prior embolic filter insertion, Polysubstance abuse with Hx Hepatitis C with associated cirrhotic liver disease who presents to the [facility] ED on 12/25/2024 with history of significant chronic fentanyl and benzodiazepine usage with her last detox for previous fall unfortunately with her stepmother passing at that time at which point she began using again status post recent VATS procedure for a wedge resection of the lung in the [facility] seen in the emergency room at their facility for postop pain in the early hours 12/25/2024 discharge from their facility but given her significant withdrawal noting last usage of both fentanyl and benzodiazepines a day prior prompted ED evaluation. #1. Acute Benzodiazepine Withdrawal: Will admit to medical surgical floor, routine labs obtained in the ED upon presentation. Given interest in sobriety, will initiate and continue on protocol with taper course of Phenobarbital, already on medications for seizure disorder as noted including gabapentin, as needed Catapres, Bentyl, Vistaril, IV fluids, IV antiemetics, Tylenol as needed for pain. Will consult Case management for assistance for transition to next level of rehabilitation care. Mag, phos pending. Maintain on CIWA protocol concurrently. #2. Acute Opiate Withdrawal: Given patient concurrent usage of several opiates, will additionally initiate and continue on protocol with tapering course of Subutex, as needed tylenol, ibuprofen, bowel regimen, gabapentin, Bentyl, Vistaril, methocarbamol, clonidine, PRN nightly trazodone for insomnia, IV fluids, IV antiemetics. Once patient clinically improved and completion of taper nearing will plan consultation with case management for transition to next level of rehabilitation care. Per records patient had recent Suboxone filled #24 with a 8-day supply on 12/15/2024. #3. Possible pulmonary cyst status post recent left-sided VATS complicated by potentially perioperative pneumonia on doxycycline with concern for acute on chronic COPD exacerbation given significant wheezing in the ED: Patient reporting recent intervention at [facility] 2 days previous to current presentation, recent reevaluation or ED in the early hours 12/25/2024 and discharged from the ED, dressing most recently changed on day of presentation, will continue wound care evaluation and dressings, currently no acute infectious concerns with postoperative incisions well-appearing. Patient also per record has been on doxycycline postoperatively which per record was filled on 12/18/2024 with a plan of a 7-day regimen, will continue to completion in addition to home inhalers as noted, as needed albuterol and will initiate IV Solu-Medrol given severity of wheezing, request sputum culture with induction and obtain full respiratory viral panel. #4. Polysubstance Abuse, History of Hepatitis C s/p antiviral treatment with associated cirrhotic liver disease with likely chronically elevated LFTs, mild appearing: Patient declined any coinfection testing in the ED and notes she was recently tested, strongly encouraged outpatient follow-up with Dr. Arrieta. #5. Anxiety and depression/bipolar disorder: Will continue patient home duloxetine, Seroquel, trazodone, clonidine and Lamictal home regimen, encouraged continued outpatient follow-up with therapy/counseling as previously arranged. #6. Tobacco Abuse: Encouraged cessation, inpatient consultation per RT, NR if desired. #7. Seizure disorder: Will continue patient home Lamictal and gabapentin high dose regimen. #8. History of previous VTE: Patient with previous history of DVT status post previous embolic filter insertion, currently not chronically anticoagulated, recent surgery noted as well. #9. Obesity: Weight loss and lifestyle changes encouraged. #10. DVT prophylaxis: Patient did have recent surgical intervention, not moving as well with previous VTE history thus will place on SCDs at this time to be cautious. Charges/Coding Visit Charges Inpatient E&M: 79719 Init Hosp L3
[2024-12-25 22:00] VITALS: BP 97/74; PULSE 97; RESP 16; TEMP 36.6; O2SAT 96
[2024-12-25 22:07] VITALS: BP 93/74; PULSE 97; RESP 16; TEMP 36.6; O2SAT 96
[2024-12-25 22:54] VITALS: BP 106/74; PULSE 88; RESP 18; TEMP 36.6; O2SAT 99
[2024-12-25] MEDS: Buprenorphine HCl 2 MG TAB.SUBL SL (23:52)
[2024-12-25] MEDS: Phenobarbital 32.4 MG Tablet 97.2 MG PO (23:52)
[2024-12-25] MEDS: Doxycycline 100 MG CAPSULE PO (23:57)
[2024-12-25] MEDS: QUEtiapine 100 MG Tablet PO (23:57)
[2024-12-25] MEDS: cloNIDine HCl 0.1 MG Tablet PO (23:58)
[2024-12-25] MEDS: traZODone 100 MG Tablet PO (23:58)
[2024-12-25] MEDS: tiZANidine HCl 2 MG Tablet 4 MG PO (23:59)
[2024-12-25] MEDS: lamoTRIgine 100 MG Tablet PO (23:59)
[2024-12-26] VITALS (10 sets, daily range): BP systolic 105–124; BP diastolic 65–85; PULSE 64–80; RESP 16–20; TEMP 36.5–37; O2SAT 93–99; BMI 36.1
[2024-12-26] MEDS: Gabapentin 800 MG Tablet PO ×2 (00:01→06:58)
[2024-12-26] MEDS: Dicyclomine 10 MG Capsule 20 MG PO (00:09)
[2024-12-26] MEDS: Senna Tablet 2 TABLET PO (00:09)
--- NOTE | 2024-12-26 02:03 | PCM.HOSP.N ---
Hospitalist Note Patient refusing IV, will change to oral prednisone.
[2024-12-26] MEDS: predniSONE 20 MG Tablet 40 MG PO (03:58)
[2024-12-26] MEDS: Phenobarbital 32.4 MG Tablet 97.2 MG PO ×4 (03:58→20:26)
[2024-12-26] MEDS: cloNIDine HCl 0.1 MG Tablet PO (06:58)
[2024-12-26] MEDS: Doxycycline 100 MG CAPSULE PO (06:58)
[2024-12-26] MEDS: Buprenorphine HCl 2 MG TAB.SUBL SL ×2 (06:59→16:12)
[2024-12-26] MEDS: Albuterol 2.5 MG/3 ML VIAL.NEB. INHALATION ×3 (07:19→20:12)
--- NOTE | 2024-12-26 07:52 | PCM.HOSP.N ---
Hospitalist Note [facility] records reviewed to clarify recent history of VATS with wedge resection and biopsy. From Pulmonary office note on 12/06: Multiple lung cysts She was diagnosed with left lower lobe pneumonia diagnosed in 04/22/[address] chest while at [facility]. This also revealed reactive hilar and mediastinal lymph nodes. She was told that she has a lung nodule as well but this is not reported on her CT chest but rather on her CT of the abdomen from 08/12/2024 that showed cystic-like changes and groundglass opacities in the left lung base. We obtained a CT chest without contrast on 11/18/2024 that I personally reviewed. It showed a moderate amount of cystic change throughout the left lung with small clustered cysts and with associated reticular interstitial densities and groundglass opacities throughout the left lung. Relative sparing of the right lung. Differential includes pulmonary Langerhans' cell histiocytosis, lymphangioleiomyomatosis (unlikely), or other cystic lung disease. I reviewed the imaging studies with the patient and her . I shared with her that I would recommend continued monitoring since the cysts are stable and the lymphadenopathy has improved while continuing on working on smoking cessation. Alternatively, we discussed option of proceeding with VATS lung biopsy. The patient wished to proceed with lung biopsy. I recommended against that. She was adamant about proceeding with lung biopsy because I would like to know what is going on with my lungs. At her request, we made a referral for cardiothoracic surgery consultation for enthesis with Dr. Barahona for consideration of VATS lung biopsy. From Cardiothroacic surgery discharge summary on 12/24: Brief Summary of Hospital Course POD 0 (12/23/2024): The patient underwent a left VATS, left upper lobe wedge resection, left lower lobe wedge resection. She tolerated surgery well. She was extubated in the OR and taken to PACU in stable condition. She did have a significant amount of postoperative pain and was started on a BOX PRINTER pump yesterday evening. POD 1 [12/24/2024): Patient reports pain and some shortness of breath. She reported having home oxygen prescribed to her from another facility. Her chest tube was removed. She was given 1 dose of furosemide 20 mg IV. She was discharged home in stable condition.
--- NOTE | 2024-12-26 09:34 | PN.HOSP_ITS ---
Reason for Visit Reason for Visit: Diagnoses Opioid use, unspecified with withdrawal (12/25/24) Sedative, hypnotic or anxiolytic use, unspecified with withdrawal, uncomplicated (12/25/24) Subjective Subjective Saw patient at bedside this morning. Patient was sitting up fairly comfortably in bedside chair and in no acute distress. She was somewhat anxious appearing but stated today that she feels improved from admission from a withdrawal standpoint on the Subutex taper and with other as needed medications. She is still having mild to moderate pain in her left chest area where the chest tube was placed, similar to previous days. No other new concerns today. Objective Data Objective Data Vital Signs: Vital Signs Temp Pulse Resp BP Pulse Ox O2 Del Method 98.3 F 67 18 111/85 H 97 Room Air 12/26/24 09:04 12/26/24 09:04 12/26/24 09:04 12/26/24 09:04 12/26/24 09:04 12/26/24 09:20 Oxygen Delivery Method Room Air Weight: 88.9 kg Body Mass Index (BMI) 36.1 Lab / Micro Data 12/25/24 21:05 12/25/24 21:05 Labs: Laboratory Results - last 24 hr 12/25/24 21:05: WBC 12.7 H, RBC 3.98 L, Hgb 12.2, Hct 36.3 L, MCV 91.2, MCH 30.7, MCHC 33.6, RDW Std Deviation 40.3, RDW Coeff of Karla 12.0, Plt Count 192, MPV 10.4, Immature Gran % (Auto) 0.500, Neut % (Auto) 59.5, Lymph % (Auto) 28.2, [place] % (Auto) 8.6, Eos % (Auto) 2.7, Baso % (Auto) 0.5, Absolute Neuts (auto) 7.6, Absolute Lymphs (auto) 3.59, Nucleated RBC % 0, Sodium 138, Potassium 3.8, Chloride 101, Carbon Dioxide 24.1, Anion Gap 12, BUN 8, Creatinine 0.61 L, Estim Creat Clear Calc 128.62, Est GFR (MDRD) Non-Af 117, BUN/Creatinine Ratio 12.8, G lucose 118 H, Calcium 9.3, Total Bilirubin 0.32, AST 61 H, ALT 43 H, Alkaline Phosphatase 92, Total Protein 7.5, Albumin 4.0, Globulin 3.4, Albumin/Globulin Ratio 1.2, Serum , Qual NEGATIVE, Ethyl Alcohol < 10.1 12/25/24 21:09: Urine Opiates Screen NEGATIVE, U Buprenorphine Qual PRESUMPTIVE POSITIVE, Ur Oxycodone Screen PRESUMPTIVE POSITIVE, Urine Methadone Screen NEGATIVE, Urine Fentanyl Screen PRESUMPTIVE POSITIVE, Ur Barbiturates Screen NEGATIVE, Ur Phencyclidine Scrn PRESUMPTIVE POSITIVE, Ur Amphetamines Screen NEGATIVE, U Benzodiazepines Scrn PRESUMPTIVE POSITIVE, Urine Cocaine Screen NEGATIVE, U Cannabinoids Screen NEGATIVE Micro: Microbiology 12/26/24 02:40 Mucosa - Nasopharyngeal Respiratory Panel (PCR) - Final Radiography Diagnostic Testing: Radiology Impression Chest X-Ray 12/25/24 21:15 IMPRESSION: No Acute Findings. [facility] Physical Exam Const alert and oriented x3 Constitutional Narrative: Younger middle-aged female, class II obesity, somewhat unkempt appearing, mildly anxious appearing but otherwise sitting up comfortably in bedside chair, conversing normally, in no acute distress. General Appearance: cooperative HEENT normocephalic, head/scalp atraumatic, hearing grossly normal bilaterally, nasal mucous membranes and turbinates normal and moist oral mucous membranes Eyes PERRL, EOMs intact bilaterally and conjunctivae normal Neck full ROM Chest Chest Narrative: Left chest along axillary line with sutures in place with mild bruising from recent chest tube placement. Resp normal respiratory effort, normal air movement, no use of accessory muscles and clear to auscultation bilaterally Cardio regular rate, regular rhythm, no murmurs and peripheral pulses 2+ throughout GI normal to inspection, nondistended, normoactive bowel sounds, soft to palpation, non-tender and non-distended Back/Spine normal ROM Extremity normal to inspection, full ROM and no pedal edema Skin no rashes or lesions noted Psych mental status grossly normal Mood & Affect: anxious Assessment & Plan Assessment/Plan (1) Benzodiazepine withdrawal: QUALIFIERS: Complication of substance-induced condition: u ncomplicated Qualified Code(s): F13.930 - Sedative, hypnotic or anxiolytic use, unspecified with withdrawal, uncomplicated (2) Opiate withdrawal: PLAN: Plan Patient is a 39-year-old female who presented to [facility] ED on 12/25/2024 for opiate and benzodiazepine withdrawal. 1. Polysubstance abuse with acute benzodiazepine withdrawal and acute opiate withdrawal ? Case management following. Last went through benzodiazepine detox here in June 2024. Has been using 5-10 tabs of either Xanax, Ativan or Valium daily. Also recently started using IV fentanyl again, has been using 1 to 2 g daily. Of note, was hospitalized at [facility] very recently as noted below and was on a BROADCAST OPERATIONS DIRECTOR pump there for short time for pain control. Continue treatment with phenobarbital and Subutex taper with other as needed medications per withdrawal order sets. Per patient, she is wanting to go home on discharge with outpatient addiction medicine follow-up. 2. 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 See quick note from 12/26 for further details. In short, patient had left-sided VATS procedure done with left upper lobe and left lower lobe wedge resections done at [facility] on 12/23. Had chest tube in place for a short period of time postoperatively. She did have significant postoperative pain requiring BROADCAST OPERATIONS DIRECTOR pump for a short period of time. However per their notes, patient showed good improvement of 12/24 and was stable for discharge home. Prior chest tube/surgical site in left chest here appears to be healing well. Patient is still reporting mild to moderate pain but this is improving from previous days. Noted to patient that opiates for pain cannot be given right now with her on the Subutex taper for controlled withdrawal symptoms. Unfortunately has reported allergy to IV Toradol as well. Will treat with Tylenol as needed for now. 3. Concern for community-acquired pneumonia with mild COPD/asthma exacerbation ? Patient with history of asthma/COPD overlap syndrome, follows with outpatient pulmonology at outside hospital. Recently completed course of steroids and antibiotics for suspected pneumonia with COPD/asthma exacerbation. Patient noted to have some wheezing on admission here. Chest x-ray unremarkable. Mild leukocytosis of 12 on admit but otherwise hemodynamically stable, afebrile and on room air. Will continue scheduled breathing treatments and p.o. prednisone and plan for 5-day course of steroids. However, will discontinue antibiotics on 12/26. Continue home long-acting inhaler. Monitor. 4. Tobacco abuse ? Nicotine patch ordered per patient request. Discussed cessation on discharge. 5. Anxiety/depression/bipolar disorder ? Continue home duloxetine, Seroquel and trazodone at night. 6. Reported seizure disorder ? Continue home Lamictal and gabapentin. 7. History of hepatitis C s/p antiviral treatment with associated liver disease and chronically elevated LFTs ? Mildly elevated LFTs on admit. Denies abdominal pain. No need for further inpatient monitoring, recommend outpatient follow-up. 8. Class II obesity ? BMI 36 on admit. Recommended weight loss. 9. History of VTE ? Prior history of DVT s/p previous embolic filter insertion. Not on chronic anticoagulation. 10. Constipation ? Patient reported feeling constipated on admit with no bowel movements for the past week or so. Presume secondary to heavy opiate use. Will start scheduled senna and MiraLAX with Dulcolax suppository as needed. DVT prophylaxis: Lovenox CODE STATUS: Full code, verified Expected disposition: Home, 2 to 3 days Total clinical time spent by myself addressing the patient's medical issues, reviewing all the data, and collaborating with patient's care team: 35 minutes. Charges/Coding Visit Charges Inpatient E&M: 47437 Subs Hosp L2
[2024-12-26] MEDS: lamoTRIgine 100 MG Tablet 200 MG PO (10:50)
[2024-12-26] MEDS: DULoxetine Hcl 60 MG Capsule PO (10:50)
[2024-12-26] MEDS: Acetaminophen 325 MG Tablet 650 MG PO (11:05)
--- NOTE | 2024-12-26 16:01 | ADDICTION ---
Pt was met with to complete the RAMP assessments, AUDIT, DUDIT, ASAM, MSE, DC Plan, and to discuss pt's need for follow up RADHA and MH tx. Pt presents as a 39 yr old F, w/significant hx of RADHA aeb daily fentanyl IV use of 1-2 grams daily and benzo use 5-10 tabs Ativan/Xanax daily, and hx of chronic relapse. She reports hx dxs Bipolar, Depression, and Anxiety. Pt states she is receiving current psychiatric tx from [facility] and she states [facility]. Pt declined any interest or discussion of residential, stating I'm going home. Pt states she lives with her in [facility]. Pt reports family will transport her home from detox. Pt has remarkable MH and physical health comorbidities and pt was encouraged to f/u w/all tx recommendations. Pt was provided a packet of info on RADHA, Recovery, Tx, and Resources.
--- NOTE | 2024-12-27 10:23 | NURSING ---
Late entry- talked with RN Ashleigh Mcdonald. Pt stated to her that she was feeling better and did not feel she needed to continue the program. Pt left A 12/25 [id number]
--- NOTE | 2024-12-28 13:25 | DS.PCM_ITS ---
Providers Date of Admission: 12/25/24 Date of Discharge: 12/26/24 Primary Care Physician: Dr. Madhavi Hunt DO Reason For Visit: OPIATE/BZD WITHDRAWAL Diagnosis Discharge Diagnosis (1) Benzodiazepine withdrawal: Status: Acute Code(s): F13.939 - Sedative, hypnotic or anxiolytic use, unspecified with withdrawal, unspecified Qualifiers: Complication of substance-induced condition: uncomplicated Qualified Code(s): F13.930 - Sedative, hypnotic or anxiolytic use, unspecified with withdrawal, uncomplicated (2) Opiate withdrawal: Status: Acute Code(s): F11.93 - Opioid use, unspecified with withdrawal Medications at Discharge Home Medications lamotrigine 100 mg tablet (Lamictal) 200 mg PO DAILY 03/30/22 trazodone 100 mg tablet 100 mg PO QHS sleep 12/05/22 buprenorphine 8 mg-naloxone 2 mg sublingual film 1 film sublingual TID 03/28/24 gabapentin 800 mg tablet 800 mg PO TID 03/28/24 ondansetron 8 mg disintegrating tablet 8 mg PO Q8H PRN nausea and vomiting #15 tabs 03/28/24 linaclotide 145 mcg capsule 145 mcg PO DAILY IBS from opiates 06/29/24 acetaminophen 325 mg tablet 325 mg PO Q4H PRN pain (scale score 1-3) 12/25/24 albuterol sulfate 90 mcg/actuation aerosol inhaler 2 puff inhalation Q4H PRN PRN shortness of breath or wheezing 12/25/24 cholecalciferol (vitamin D3) 1,250 mcg (50,000 unit) capsule 1,250 mcg PO .weekly 12/25/24 clonidine HCl 0.1 mg tablet 0.1 mg PO TID anxiety 12/25/24 doxycycline hyclate 100 mg capsule 100 mg PO BID 12/25/24 duloxetine 60 mg capsule,delayed release 60 mg PO DAILY 12/25/24 epinephrine 1 mg/mL injection solution (Adrenalin) 0.1 mg IM Q30M PRN anaphylaxis 12/25/24 ergocalciferol (vitamin D2) 1,250 mcg (50,000 unit) capsule 1,250 mcg PO QWEEK 12/25/24 fluticasone furoate 100 mcg-vilanterol 25 mcg/dose inhalation powder (Breo Ellipta) 1 inh inhalation DAILY 12/25/24 ibuprofen 600 mg tablet 600 mg PO Q6H PRN PRN pain 12/25/24 mometasone-formoterol HFA 200 mcg-5 mcg/actuation aerosol inhaler (Dulera) 2 puff inhalation PRN PRN shortness of breath 12/25/24 ondansetron 4 mg disintegrating tablet 4 mg PO Q6H PRN PRN nausea and vomiting 12/25/24 oxycodone 5 mg tablet 5 mg PO 4X/DAY PRN PRN pain 12/25/24 quetiapine 100 mg tablet 100 mg PO QHS 12/25/24 tizanidine 4 mg tablet 4 mg PO BID 12/25/24 Hospital Course Operations None Procedures - (chest x-ray) Summary of Care Provided Minutes Spent on Discharge: 35 Hospital Course: Patient is a 39-year-old female who presented to [facility] ED on 12/25/2024 for opiate and benzodiazepine withdrawal. Short hospital course as noted below. Patient opted to leave AGAINST MEDICAL ADVICE on the evening of 12/26. 1. Polysubstance abuse with acute benzodiazepine withdrawal and acute opiate withdrawal ? Case management followed. Last went through benzodiazepine detox here in June 2024. Has been using 5-10 tabs of either Xanax, Ativan or Valium daily. Also recently started using IV fentanyl again, has been using 1 to 2 g daily. Of note, was hospitalized at [facility] very recently as noted below and was on a HEALTH INSURANCE ADJUSTER pump there for short time for pain control. Treated with phenobarbital and Subutex taper with other as needed medications per withdrawal order sets. Left AMA on 12/26. 2. 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 See quick note from 12/26 for further details. In short, patient had left-sided VATS procedure done with left upper lobe and left lower lobe wedge resections done at [facility] on 12/23. Had chest tube in place for a short period of time postoperatively. She did have significant postoperative pain requiring HEALTH INSURANCE ADJUSTER pump for a short period of time. However per their notes, patient showed good improvement of 12/24 and was stable for discharge home. Prior chest tube/surgical site in left chest here appears to be healing well. Patient is still reporting mild to moderate pain but this is improving from previous days. Noted to patient that opiates for pain cannot be given right now with her on the Subutex taper for controlled withdrawal symptoms. Unfortunately has reported allergy to IV Toradol as well. Treated with Tylenol as needed. 3. Concern for community-acquired pneumonia with mild COPD/asthma exacerbation ? Patient with history of asthma/COPD overlap syndrome, follows with outpatient pulmonology at outside hospital. Recently completed course of steroids and antibiotics for suspected pneumonia with COPD/asthma exacerbation. Patient noted to have some wheezing on admission here. Chest x-ray unremarkable. Mild leukocytosis of 12 on admit but otherwise hemodynamically stable, afebrile and on room air. Treated with scheduled breathing treatments and p.o. prednisone while inpatient. Discontinued antibiotics on 12/26. Continue home long-acting inhaler. 4. Tobacco abuse ? Nicotine patch in place per patient request while inpatient. Discussed cessation. 5. Anxiety/depression/bipolar disorder ? Continue home duloxetine, Seroquel and trazodone at night. 6. Reported seizure disorder ? Continue home Lamictal and gabapentin. 7. History of hepatitis C s/p antiviral treatment with associated liver disease and chronically elevated LFTs ? Mildly elevated LFTs on admit. Denies abdominal pain. No need for further inpatient monitoring, recommend outpatient follow-up. 8. Class II obesity ? BMI 36 on admit. Recommended weight loss. 9. History of VTE ? Prior history of DVT s/p previous embolic filter insertion. Not on chronic anticoagulation. 10. Constipation ? Patient reported feeling constipated on admit with no bowel movements for the past week or so. Presume secondary to heavy opiate use. Treated scheduled senna and MiraLAX with Dulcolax suppository as needed. Total clinical time spent by myself addressing the patient's medical issues, reviewing all the data, and collaborating with patient's care team: 35 minutes. Physical Exam Const alert and oriented x3 Constitutional Narrative: Younger middle-aged female, class II obesity, somewhat unkempt appearing, mildly anxious appearing but otherwise sitting up comfortably in bedside chair, conversing normally, in no acute distress. General Appearance: cooperative HEENT normocephalic, head/scalp atraumatic, hearing grossly normal bilaterally, nasal mucous membranes and turbinates normal and moist oral mucous membranes Eyes PERRL, EOMs intact bilaterally and conjunctivae normal Neck full ROM Chest Chest Narrative: Left chest along axillary line with sutures in place with mild bruising from recent chest tube placement. Resp normal respiratory effort, normal air movement, no use of accessory muscles and clear to auscultation bilaterally Cardio regular rate, regular rhythm, no murmurs and peripheral pulses 2+ throughout GI normal to inspection, nondistended, normoactive bowel sounds, soft to palpation, non-tender and non-distended Back/Spine normal ROM Extremity normal to inspection, full ROM and no pedal edema Skin no rashes or lesions noted Psych mental status grossly normal Mood & Affect: anxious Weight / BMI Weight Weight: 88.9 kg Body Mass Index (BMI) 36.1 ABG / Lab / Microbiology Data 12/25/24 21:05 12/25/24 21:05 Microbiology: Microbiology 12/26/24 09:20 Sputum, Expectorated/Coughed Gram Stain - Final 12/26/24 09:20 Sputum, Expectorated/Coughed Respiratory Culture - Preliminary Enterobacter cloacae complex Yeast Like Organism 12/26/24 02:40 Mucosa - Nasopharyngeal Respiratory Panel (PCR) - Final D/C Instructions DC O2, CPAP, BIPAP Needs Home O2 Discharge instructions: No Meaningful Use Info Meaningful Use Meaningful Use Diagnoses (Choose all that apply): None applicable Ischemic Stroke Statin Dosing Therapy Reference: STATIN DOSE THERAPY REFERENCE: * Patients > 75 years receive moderate or high dose statin therapy. * Patients 75 years or YOUNGER should receive HIGH intensity statin dose unless contraindicated. You will be required to document reason for non-treatment if statin daily dose does not meet guidelines. HIGH DOSE STATIN THERAPY DAILY Atorvastatin > than or = to 40 mg Rosuvastatin > than or = to 20 mg Amlodipine + Atorvastatin > than or = to 2.5/40 mg Ezetimibe + Simvastatin 10/80 mg Simvastatin 80mg Discharge Plan Admission Admit Date/Time: 12/25/24 21:50 Primary Reason for Your Visit: opiate and benzo withdrawal Attending Provider: Liam Amaya Primary Care Provider: Madhavi Hunt Consulting Providers: Eneida Ramos Discharge Orders/Prescriptions Prescriptions: Continued lamotrigine [Lamictal] 100 mg Tablet 200 mg PO DAILY Rx Instructions: 200 orally daily; 100 Oral at night. trazodone 100 mg Tablet 100 mg PO QHS buprenorphine-naloxone 8-2 mg film 1 film sublingual TID Patient Comments: PLACE 1 STRIP UNDER THE TONGUE THREE TIMES DAILY. ALLOW TO DISSOLVE SLOWLY IN MOUTH WITHOUT CHEWING OR SWALLOWING gabapentin 800 mg tablet 800 mg PO TID Patient Comments: TAKE 1 TABLET BY MOUTH THREE TIMES DAILY ondansetron 8 mg tablet,disintegrating 8 mg PO Q8H PRN (Reason: nausea and vomiting) Qty: 15 0RF linaclotide 145 mcg capsule 145 mcg PO DAILY duloxetine 60 mg capsule,delayed release(DR/EC) 60 mg PO DAILY acetaminophen 325 mg tablet 325 mg PO Q4H PRN (Reason: pain (scale score 1-3)) ibuprofen 600 mg tablet 600 mg PO Q6H PRN PRN (Reason: pain) oxycodone 5 mg tablet 5 mg PO 4X/DAY PRN PRN (Reason: pain) albuterol sulfate 90 mcg/actuation HFA aerosol inhaler 2 puff inhalation Q4H PRN PRN (Reason: shortness of breath or wheezing) fluticasone furoate-vilanterol [Breo Ellipta] 100-25 mcg/dose blister with device 1 inh inhalation DAILY clonidine HCl 0.1 mg tablet 0.1 mg PO TID doxycycline hyclate 100 mg capsule 100 mg PO BID epinephrine [Adrenalin] 1 mg/mL solution 0.1 mg IM Q30M PRN (Reason: anaphylaxis) Rx Instructions: do not exceed 12 doses per 24 hrs Dulera 200-5 mcg/actuation HFA aerosol inhaler 2 puff INHALATION PRN PRN (Reason: shortness of breath) ondansetron 4 mg tablet,disintegrating 4 mg PO Q6H PRN PRN (Reason: nausea and vomiting) tizanidine 4 mg tablet 4 mg PO BID quetiapine 100 mg tablet 100 mg PO QHS cholecalciferol (vitamin D3) 1,250 mcg (50,000 unit) capsule 1,250 mcg PO .weekly ergocalciferol (vitamin D2) 1,250 mcg (50,000 unit) capsule 1,250 mcg PO QWEEK Referrals / Follow Up: Madhavi Hunt DO [Primary Care Provider] - Disposition Disposition (needs filled in before D/C Order can be placed): Against Medical Advice Charges/Coding Visit Charges Inpatient E&M: 91872 Disch Hosp >30min
== END 2024-12-26 23:15 | disposition left against medical advice (07) | DRG 770 ==
LOC: ED 20:27 → MS3 12-26 07:04
PROVIDERS: Admitting Provider Family Medicine; Emergency Provider Emergency Medicine; PCP Family Medicine; Visit Provider Hospitalist
DX: F13.139 Sedative, hypnotic or anxiolytic abuse with withdrawal, unspecified (principal); F11.13 Opioid abuse with withdrawal; F31.9 Bipolar disorder, unspecified; J44.1 Chronic obstructive pulmonary disease with (acute) exacerbation; G40.909 Epilepsy, unspecified, not intractable, without status epilepticus; E66.812 Obesity, class 2; F17.210 Nicotine dependence, cigarettes, uncomplicated; F41.9 Anxiety disorder, unspecified; R91.8 Other nonspecific abnormal finding of lung field; Z68.36 Body mass index [BMI] 36.0-36.9, adult; Z79.51 Long term (current) use of inhaled steroids; Z79.899 Other long term (current) drug therapy; Z86.711 Personal history of pulmonary embolism; Z86.718 Personal history of other venous thrombosis and embolism; Z53.29 Procedure and treatment not carried out because of patient's decision for other reasons; Z98.890 Other specified postprocedural states; K59.00 Constipation, unspecified
CPT/HCPCS: 71045; 80053; 80307; 82077; 84703; 85025; 87070; 87077; 87186; 87205; 87633; 94640; 94668; 99221; 99252; 99283; G0378; G0463

== ENCOUNTER → 2025-03-21 | Outpatient (CLI) | payer MEDICAID, SELFPAY | END | disposition home or self-care (01) | LOC: MTLAB 13:56 | PROVIDERS: PCP Family Medicine; Referring Provider Internal Medicine Gastroenterology; Visit Provider Internal Medicine Gastroenterology | DX: B19.20 Unspecified viral hepatitis C without hepatic coma (principal) | CPT/HCPCS: 36415; 87522 ==